=== PATIENT | female | born 1965 | race Caucasian/White ===

== ENCOUNTER 2024-07-24 17:45 | Observation (INO) | payer OTHER, SELFPAY ==
[2024-07-24] VITALS (12 sets, daily range): BP systolic 124–150; BP diastolic 76–91; PULSE 74–92; RESP 12–29; TEMP 36.4–36.6; O2SAT 98–100
--- NOTE | ~2024-07-24 | CT_ITS ---
EXAMINATION: CTA brain carotid DATE: 07/24/2024 19:07 INDICATION: Left-sided weakness with unsteady gait TECHNIQUE: Computed tomographic angiography (CTA) of the head was performed without and with 100 mL O mnipaque-350 intravenous contrast. CTA of the neck was performed with intravenous contrast. The dose- length product was 1514.52 mGy-cm. Maximum intensity projection and volume rendered 3D-reconstruction s were created by the technologist on a separate workstation. COMPARISON: None. FINDINGS: HEAD CTA: No significant stenosis or aneurysmal dilatation is identified. [place] is int act. NECK CTA: No hemodynamically significant stenosis is identified bilaterally. Within the brain: No acute intracranial hemorrhage or suspicious mass effect. Mucoperiosteal thickening is identified left maxillary sinus. Right maxillary sinus and remaining paranasal sinuses are unremarkable. The mastoid air cells are well aerated There is 0% stenosis of the proximal right internal carotid artery relative to normal distal artery l umen diameter (NASCET criteria). There is 0% stenosis of the proximal left internal carotid artery re lative to normal distal artery lumen diameter. IMPRESSION: 1. 0% stenosis of the proximal right internal carotid artery relative to normal distal artery lumen d iameter (NASCET criteria). 2. 0% stenosis of the proximal left internal carotid artery relative to normal distal artery lumen di ameter. No acute intracranial hemorrhage or suspicious mass effect. Inflammatory sinus disease Reviewed, dictated and finalized at location A. GY PROFESSIONAL IMPRESSION: 1. 0% stenosis of the proximal right internal carotid artery relative to normal distal artery lumen diameter (NASCET criteria). 2. 0% stenosis of the proximal left internal carotid artery relative to normal distal artery lumen diameter. No acute intracranial hemorrhage or suspicious mass effect. Inflammatory sinus disease
--- NOTE | ~2024-07-24 | MR_ITS ---
EXAMINATION: MR brain/brain stem wo con DATE: 07/25/2024 13:42 INDICATION: Left hemiparesis TECHNIQUE: Magnetic resonance imaging (MRI) of the brain and brainstem was performed without intraven ous contrast. Sequences included sagittal and axial T1-weighted SE, axial diffusion-weighted FS SE, a xial 3D SWAN, axial T2-weighted FLAIR, and axial T2-weighted FSE. Postcontrast axial and coronal T1-w eighted SE was obtained. Apparent diffusion coefficient (ADC) maps were created. COMPARISON: Head CT and CT angiogram dated 07/24/2024 FINDINGS: There are no areas of restricted diffusion to suggest acute infarction. No intracranial hemorrhage or abnormal intracranial mass lesion. There are a few scattered areas of nonspecific increased T2-weigh lina signal intensity in the cerebral white matter, predominantly involving the deep and periventricul ar white matter which is within normal limits for age and likely sequela of chronic small vessel isch emic disease. There are no intraparenchymal signal abnormalities seen on the other pulse sequences. T he ventricles are symmetric and normal in size. There are no abnormal extra-axial fluid collections. Flow voids are seen in the cerebral arteries on the T2-weighted sequences consistent with their expec lina patency. Left vertebral artery is dominant. Prominent mucosal thickening the left maxillary sinus . Mild mucosal thickening at the right maxillary and bilateral ethmoid sinuses. Visualized orbits and soft tissues are unremarkable. IMPRESSION: 1. Normal aging brain. No acute intracranial process. Reviewed, dictated and finalized at location B. RAFT ENGINE TECHNICIAN
--- NOTE | ~2024-07-24 | XR_ITS ---
CHEST RADIOGRAPH CLINICAL HISTORY: weakness . COMPARISON: 04/11/2016 TECHNIQUE: Single portable view of the chest. FINDINGS The cardiomediastinal silhouette is unremarkable. The lungs are clear. Prior fracture deformity within the right mid to lower lung field. IMPRESSION: No focal infiltrate or effusion. Reviewed, dictated and finalized at location A. ENT CENTERED CARE SPECIALIST
--- NOTE | 2024-07-24 17:45 | ECG_ITS ---
Test Date: 2024-07-24 17:52:23 Measurements Intervals [place] Rate: 91 P: 63 NV: 186 QRS: 5 QRSD: 98 T: 64 QT: 365 QTc: 451 Interpretive Statements SINUS RHYTHM LEFT ATRIAL ENLARGEMENT [-0.15mV P-WAVE IN V1/V2] No previous ECG available for comparison Electronically Signed On 07-25-2024 18:25:49 TOOL MAINTENANCE TECHNICIAN by Irasema Mott M.D.
[2024-07-24 18:13] LABS: Basophils Percent Auto 0.4 % (0.2-1.2); Eosinophils Absolute Auto 0.1 K/mm3 (0-0.3); Eosinophils Percent Auto 1.5 % (0-4.4); Hemoglobin 12.3 g/dL (12.0-15.0); Immature Granulocyte Absolute 0.02 K/mm3 (0.00-0.031); Immature Granulocyte Percent A 0.3 % (0-0.5); Lymphocytes Absolute Auto 2.46 K/mm3 (0.9-3.2); Lymphocytes Percent Auto 32.8 % (18.3-44.2); Mean Corpuscular HGB Conc 33.2 g/dl (32-36); Mean Corpuscular Hemoglobin 29.1 pg (26-34); Mean Corpuscular Volume 87.7 fl (80-100); Monocytes Absolute Auto 0.5 K/mm3 (0.1-0.6); Monocytes Percent Auto 7.1 % (2.6-8.5); Neutrophils Absolute Auto 4.4 K/mm3 (1.3-6.7); Neutrophils Percent Auto 57.9 % (45.5-73.1); Platelet Count Result 316 k/mm3 (150-375); Red Blood Count 4.22 M/mm3 (4.2-5.4); Red Cell Distribution Width 14.1 % (11.5-14.5); White Blood Count 7.5 K/mm3 (4.5-10.0)
[2024-07-24 18:22] LABS: Alanine Aminotransferase 11 U/L (6-35); Alkaline Phosphatase 91 U/L (38-126); Anion Gap 1 mmol/L (4-12); Aspartate Amino Transferase 12 U/L (14-36); Bilirubin,Total 0.3 mg/dL (0.2-1.3); Blood Urea Nitrogen 7 mg/dL (7-17); Calcium 8.9 mg/dL (8.4-10.2); Carbon Dioxide 29 mmol/L (22-30); Chloride 108 mmol/L (98-107); Estimated Glomerular Filt Rate > 60; Glucose 85 mg/dL (65-110); Potassium 3.5 mmol/L (3.4-5.0); Sodium 138 mmol/L (137-145)
[2024-07-24 18:23] LABS: INR 0.9; Partial Thromboplastin Time 25.1 Seconds (22.3-36.8); Prothrombin Time 12.2 Seconds (11.1-14.7)
[2024-07-24 18:51] LABS: Ethanol < 10 mg/dL (<10)
[2024-07-24 19:02] LABS: Ammonia < 9 umol/L (9-30)
--- NOTE | 2024-07-24 19:02 | ED.AMS ---
HPI - Altered Mental Status General Chief Complaint: Altered Mental Status Stated Complaint: lethargy, frequent urination, ams Time Seen by Provider: 07/24/24 17:53 Source: patient, family (son), EMS and RN notes reviewed Mode of arrival: EMS History of Present Illness HPI narrative: This is a 59 year old female with history of bipolar, tardive dyskinesia who presents for evaluation of frequent falls and altered mental status. PAtient states 1 month ago her trazodone and austedo were increased . She has been having frequent falls and dizziness since her medication adjustment. She also reports left side weakness for 2 weeks. She reports mild frontal headache. Her son states that she has been having worsening memory issues for 2 weeks and she has been diagnosed early onset dementia by PCP. She has not sought medical treatment in the past 2 weeks. They called 911 today because patient came out of the bathroom with her shirt off and did not seem to be aware of what was going on. HEr son states she thought was 1958. PAtient currently is oriented to person, age, place and year. Related Data Allergies Allergy/AdvReac Type Severity Reaction Status Date / Time Penicillins Allergy Unknown Rash Verified 07/24/24 17:54 Review of Systems Constitutional: Constitutional: Reports fatigue and Reports weakness ENT: Reports dizziness and Reports nasal congestion Cardiovascular: Cardiovascular: Denies chest pain Respiratory: Respiratory: Denies cough and Denies dyspnea Gastrointestinal: Gastrointestinal: Denies abdominal pain Neurologic: Reports headache(s), Reports focal weakness and Reports weakness PMFSH Past Medical History Medical History (Updated 07/24/24 @ 20:11 by Anat Wong MD) Tardive dyskinesia Bipolar disorder Family History Family History (Updated 03/23/14 @ 07:13 by DOCTOR UNKNOWN) Father Depression Hypertension Asthma Family history of alcoholism Mother Family history of malignant neoplasm Other Family history of mental disorder Social History Social History Smoking status: Former smoker Second hand tobacco smoke exposure: No Smoking end date: 07/27/04 Alcohol intake: current Exam Const: General: no acute distress and alert Nutritional Appearance: well nourished Orientation/consciousness: patient oriented x3 HENMT: Head: normal to inspection Face and sinus: normal facial exam Mouth: Yes Normal oral and palatal mucosa present, Yes lip normal and Yes moist mucous membranes Throat: posterior oropharynx normal and uvula midline Other: endentulous Eyes: Conjunctivae: conjunctivae normal Pupils: Equal, round and reactive pupils present EOM: EOMs intact bilaterally Neck: Neck: normal visual inspection Resp: Effort & Inspection: normal respiratory effort Auscultation: clear to auscultation bilaterally Cardio: Rate: regular rate Rhythm: regular rhythm Heart sounds: no murmurs GI: GI Palp: Yes Soft to palpation, No Tenderness to palpation present (GI), No Guarding due to palpation present (GI) and No Rigid due to palpation Auscultation: normal bowel sounds Skin: General skin exam: normal color Neuro: General: patient oriented x3, moves all extremities and CN's II-XI intact bilaterally Cranial nerves: Yes Nystagmus not present Speech: normal speech Motor exam (neuro): Abnormal motor strength present (decrease strength left leg) and Pronator motor function present pronator drift of left upper extremity Sensory Exam: Sensory deficit (Neuro) Course Reevaluation(s) Reevaluation #1: I Discussed with patient will admit for MRI to rule out CVA given her left side weakness. Date: 07/17/24 Time: 20:10 Consultations Consultation #1: I Discussed case with Asiya. PAtient will need MRI For rule out stroke that may have occurred within past 2 weeks. Not candidate for TNK or intervention as symptoms started over 72 hours ago. Ok with placing order for neuro consult. Date: 07/24/24 Time: 20:09 Vital Signs Vital signs: Vital Signs Temperature 97.6 F 07/24/24 17:48 Pulse Rate 92 07/24/24 17:48 Respiratory Rate 23 H 07/24/24 17:48 Blood Pressure 150/91 H 07/24/24 17:48 Pulse Oximetry 99 07/24/24 17:48 Oxygen Delivery Room Air 07/24/24 17:48 Temperature 97.6 F 07/24/24 19:13 Pulse Rate 86 07/24/24 19:13 Respiratory Rate 12 07/24/24 19:13 Blood Pressure 124/80 07/24/24 19:13 Pulse Oximetry 100 07/24/24 19:13 Oxygen Delivery Room Air 07/24/24 17:54 MDM - Altered Mental Status Differential Diagnosis Differential diagnosis: Likely alcoholic intoxication, altered mental status, delirium, dementia, hypoglycemia, hyponatremia, subarachnoid hemorrhage and other (CVA) Medical Records Attestation: I reviewed the patient's medical records. Lab Data Attestation: I reviewed the patient's lab results. 07/24/24 18:05 07/24/24 18:05 Labs: Lab Results 07/24/24 07/24/24 07/24/24 Range/Units 18:05 18:22 18:47 WBC 7.5 (4.5-10.0) K/mm3 RBC 4.22 (4.2-5.4) M/mm3 Hgb 12.3 (12.0-15.0) g/dL Hct 37.0 (37.0-47.0) % MCV 87.7 (80-100) fl MCH 29.1 (26-34) pg MCHC 33.2 (32-36) g/dl RDW 14.1 (11.5-14.5) % Plt Count 316 (150-375) k/mm3 MPV 9.0 (7.4-10.4) fl Immature Gran % (Auto) 0.3 (0-0.5) % Neut % (Auto) 57.9 (45.5-73.1) % Lymph % (Auto) 32.8 (18.3-44.2) % [place] % (Auto) 7.1 (2.6-8.5) % Eos % (Auto) 1.5 (0-4.4) % Baso % (Auto) 0.4 (0.2-1.2) % Lymph # (Auto) 2.46 (0.9-3.2) K/mm3 [place] # (Auto) 0.5 (0.1-0.6) K/mm3 Eos # (Auto) 0.1 (0-0.3) K/mm3 Baso # (Auto) 0.0 (0.0-0.1) K/mm3 Abs Immat Gran (auto) 0.02 (0.00-0.031) K/mm3 Absolute Neuts (auto) 4.4 (1.3-6.7) K/mm3 Absolute Nucleated RBC 0.000 (0.0-0.012) K/mm3 Nucleated RBC % 0.0 (0.0-0.2) % PT 12.2 (11.1-14.7) Seconds INR 0.9 APTT 25.1 (22.3-36.8) Seconds Sodium 138 (137-145) mmol/L Potassium 3.5 (3.4-5.0) mmol/L Chloride 108 H (98-107) mmol/L Carbon Dioxide 29 (22-30) mmol/L Anion Gap 1 L (4-12) mmol/L BUN 7 (7-17) mg/dL Creatinine 0.80 (0.7-1.0) mg/dL Estim Creat Clear Calc Not Reportable Estimated GFR > 60 (59 - ) Glucose 85 (65-110) mg/dL Calcium 8.9 (8.4-10.2) mg/dL Total Bilirubin 0.3 (0.2-1.3) mg/dL AST 12 L (14-36) U/L ALT 11 (6-35) U/L Alkaline Phosphatase 91 (38-126) U/L Ammonia < 9 L (9-30) umol/L Total Protein 7.0 (6.3-8.2) g/dL Albumin 4.0 (3.5-5.1) g/dL Urine Color (Yellow) Urine Appearance (Clear) Urine pH (5.0-9.0) Ur Specific [place] (1.001-1.035) Urine Protein (Negative) mg/dL Urine Glucose (UA) (Negative) mg/dL Urine Ketones (Negative) mg/dL Ur Blood (Man) (Negative) Urine Nitrate (Negative) Urine Bilirubin (Negative) Urine Urobilinogen (<2.0) mg/dL Leukocyte Esterase Rfl (Negative) BREANA/UL Urine RBC (0-2) /hpf Urine WBC (0-3) /hpf Ur Squamous Epith Cells (Few) /hpf Urine Bacteria /hpf Urine Casts Urine Opiates Screen (Negative) Urine Methadone Screen (Negative) Ur Barbiturates Screen (Negative) Ur Phencyclidine Scrn (Negative) Ur Amphetamine Screen (Negative) U Benzodiazepines Scrn (Negative) Urine Cocaine Screen (Negative) U Cannabinoids Screen (Negative) Ethyl Alcohol < 10 (<10) mg/dL Influenza A (RT-PCR) Negative (Negative) Influenza B (RT-PCR) Negative (Negative) SARS-CoV-2 RNA (RT-PCR) Negative (Negative) 07/24/24 Range/Units 19:11 WBC (4.5-10.0) K/mm3 RBC (4.2-5.4) M/mm3 Hgb (12.0-15.0) g/dL Hct (37.0-47.0) % MCV (80-100) fl MCH (26-34) pg MCHC (32-36) g/dl RDW (11.5-14.5) % Plt Count (150-375) k/mm3 MPV (7.4-10.4) fl Immature Gran % (Auto) (0-0.5) % Neut % (Auto) (45.5-73.1) % Lymph % (Auto) (18.3-44.2) % [place] % (Auto) (2.6-8.5) % Eos % (Auto) (0-4.4) % Baso % (Auto) (0.2-1.2) % Lymph # (Auto) (0.9-3.2) K/mm3 [place] # (Auto) (0.1-0.6) K/mm3 Eos # (Auto) (0-0.3) K/mm3 Baso # (Auto) (0.0-0.1) K/mm3 Abs Immat Gran (auto) (0.00-0.031) K/mm3 Absolute Neuts (auto) (1.3-6.7) K/mm3 Absolute Nucleated RBC (0.0-0.012) K/mm3 Nucleated RBC % (0.0-0.2) % PT (11.1-14.7) Seconds INR APTT (22.3-36.8) Seconds Sodium (137-145) mmol/L Potassium (3.4-5.0) mmol/L Chloride (98-107) mmol/L Carbon Dioxide (22-30) mmol/L Anion Gap (4-12) mmol/L BUN (7-17) mg/dL Creatinine (0.7-1.0) mg/dL Estim Creat Clear Calc Estimated GFR (59 - ) Glucose (65-110) mg/dL Calcium (8.4-10.2) mg/dL Total Bilirubin (0.2-1.3) mg/dL AST (14-36) U/L ALT (6-35) U/L Alkaline Phosphatase (38-126) U/L Ammonia (9-30) umol/L Total Protein (6.3-8.2) g/dL Albumin (3.5-5.1) g/dL Urine Color Yellow (Yellow) Urine Appearance Clear (Clear) Urine pH 6.5 (5.0-9.0) Ur Specific [place] 1.007 (1.001-1.035) Urine Protein Negative (Negative) mg/dL Urine Glucose (UA) Negative (Negative) mg/dL Urine Ketones Negative (Negative) mg/dL Ur Blood (Man) Negative (Negative) Urine Nitrate Negative (Negative) Urine Bilirubin Negative (Negative) Urine Urobilinogen 0.2 (<2.0) mg/dL Leukocyte Esterase Rfl 3+ H (Negative) BREANA/UL Urine RBC 0-2 (0-2) /hpf Urine WBC 6-10 H (0-3) /hpf Ur Squamous Epith Cells Occasional (Few) /hpf Urine Bacteria None seen /hpf Urine Casts 0-2 Urine Opiates Screen Negative (Negative) Urine Methadone Screen Negative (Negative) Ur Barbiturates Screen Negative (Negative) Ur Phencyclidine Scrn Negative (Negative) Ur Amphetamine Screen Negative (Negative) U Benzodiazepines Scrn Negative (Negative) Urine Cocaine Screen Negative (Negative) U Cannabinoids Screen Positive A (Negative) Ethyl Alcohol (<10) mg/dL Influenza A (RT-PCR) (Negative) Influenza B (RT-PCR) (Negative) SARS-CoV-2 RNA (RT-PCR) (Negative) Imaging Data Radiologist's impression: ITS Impressions Chest X-Ray 07/24/24 19:31 IMPRESSION: No focal infiltrate or effusion. Head/Neck CTA 07/24/24 19:34 IMPRESSION: 1. 0% stenosis of the proximal right internal carotid artery relative to normal distal artery lumen diameter (NASCET criteria). 2. 0% stenosis of the proximal left internal carotid artery relative to normal distal artery lumen diameter. No acute intracranial hemorrhage or suspicious mass effect. Inflammatory sinus disease ECG Data EKG #1: Attestation: I personally reviewed and interpreted this ECG as follows: ECG completion date: 07/24/24 ECG completion time: 17:52 EKG Interpretation: normal rate, sinus rhythm and no ST changes Discharge Plan Discharge Clinical Impression: Left-sided muscle weakness Patient Disposition: Still a Patient Condition: Stable Patient Language: [place] Follow-up/Referrals: UNKNOWN,DOCTOR [Primary Care Provider] - Quality Stroke Scale Stroke Scale 1: Stroke scale date:: 07/24/24 Stroke scale time:: 19:28 1a Level of consciousness: alert-0 1b Level of consciousness questions: answers both correctly-0 1c Level of consciousness commands: obeys both correctly-0 2 Best gaze: normal-0 3 Visual: no visual loss-0 4 Facial palsy: normal-0 5a Motor: left arm: drift-1 5b Motor: right arm: no drift-0 6a Motor: left leg: drift-1 6b Motor: right leg: no drift-0 7 Limb ataxia: absent-0 8 Sensory: pinprick less sharp-1 9 Best language: no aphasia-0 10 Dysarthria: normal-0 11 Extinction and inattention: no abnormality-0 Level:: 3
[2024-07-24 19:06] LABS: Influenza A QL RT-PCR Negative (Negative); Influenza B QL RT-PCR Negative (Negative); SARS-CoV-2 RNA PCR Negative (Negative)
[2024-07-24 19:34] LABS: Amphetamine Screen Urine Negative (Negative); Barbiturate Screen Urine Negative (Negative); Benzodiazepines Screen Urine Negative (Negative); Cannabinoid Screen Urine Positive (Negative); Cocaine Screen Urine Negative (Negative); Methadone Screen Urine Negative (Negative); Opiate Screen Urine Negative (Negative); Phencyclidine Screen Urine Negative (Negative)
[2024-07-24 19:48] LABS: Add Urine Microscopic? YES; Appearance Urine Clear (Clear); Bacteria Urine None Seen /hpf; Bilirubin Urine Negative (Negative); Blood Urine Negative (Negative); Color Urine Yellow (Yellow); Glucose Urine UA Negative (Negative); Ketones Urine Negative (Negative); Leukocyte Esterase Ur 3+ LEU/UL (Negative); Nitrate Urine Negative (Negative); Non Pathogenic Casts 0-2; Protein Urine Negative (Negative); RBC Urine 0-2 /hpf (0-2); Specific Grav Ur 1.007 (1.001-1.035); Squamous Epithelial Cell Urine Occasional /hpf (Few); Urobilinogen Urine 0.2 mg/dL (<2.0); pH Urine 6.5 (5.0-9.0)
--- NOTE | 2024-07-24 20:10 | P.HP_ITS ---
H&P: HPI History of Present Illness Date/Time: 07/24/24 20:10 Chief Complaint: Multiple complaints. Narrative: This is a 59-year-old female with bipolar disorder, depression, and tardive dyskinesia presented to the emergency department via EMS from home with multiple complaints. The patient provides the following history and her family provides additional information with the patient's permission. About a month ago her trazodone and [place] doses were increased and she reports increased falls and dizziness since those changes were made. Over the last couple of weeks she has noticed some weakness on her left side and family members have noticed that she seems to be a bit confused. It is my understanding that she was diagnosed with possible early-onset dementia by her doctor though that has yet to be confirmed. The patient has not been evaluated for the symptoms as of yet however her family members insisted that she come in today for evaluation after she came out of the bathroom with her shirt off and did not seem to be aware what was going on. At the time my evaluation she is alert and oriented times 3 and remains a bit confused as to what occurred earlier on today. She denies vertigo, visual c hanges, facial droop, difficulties speaking and swallowing, and paresthesias. She also denies chest pain, palpitations, sensations of racing heart, syncope, near syncope, and head trauma. No recent cold or flu symptoms but she does have chronic sinus issues. In the ED: She was afebrile on arrival with stable vital signs. CBC and CMP were pretty unremarkable. Urinalysis was positive for 3+ leukocyte esterase and 6 to 10 wbc's per high-power field. Urine drug screen was positive for cannabinoids. Ethyl alcohol level was less than 10. She was negative for influenza and COVID. Chest x-ray showed no focal infiltrate or effusion. CTA of the head and neck showed 0% stenosis of the internal carotid arteries, no intracranial hemorrhage or suspicious mass effect, and inflammatory sinus disease. EKG showed sinus rhythm without acute ST segment deviations. She is being admitted in this setting for further workup. Review of Systems Review of Systems: 12 systems were reviewed and are negativ e except for as per HPI. [facility] Past Medical History Medical History Depression Tardive dyskinesia Bipolar disorder Surgical History Surgical History History of section History of hysterectomy History of tonsillectomy Family History Family History Father Depression Hypertension Asthma Family history of alcoholism Mother Family history of malignant neoplasm Other Family history of mental disorder Social History Social History (Updated 07/25/24 @ 03:24 by Asiya Dash PA-C) Social History: Surrogate medical decision maker: Son Code status: Full code. Smoking status: Former smoker Second hand tobacco smoke exposure: No Smoking end date: 07/27/04 Alcohol intake: current Meds Home Medications and Allergies Allergies Allergy/AdvReac Type Severity Reaction Status Date / Time Penicillins Allergy Unknown Rash Verified 07/24/24 17:54 Vital Signs Vital Signs - 24 hr 07/24/24 17:48 07/24/24 17:54 07/24/24 19:12 Temperature 97.6 F Pulse Rate 92 87 Respiratory Rate 23 H Blood Pressure 150/91 H Pulse Oximetry 99 Oxygen Delivery Room Air Room Air 07/24/24 19:13 Temperature 97.6 F Pulse Rate 86 Respiratory Rate 12 Blood Pressure 124/80 Pulse Oximetry 100 Oxygen Delivery Exam Narrative: General: Chronically ill-appearing female supine in bed in no acute distress. She looks older than her stated age. Weight: 69.2 kg. HEENT: Normocephalic, atraumatic. PERRL, EOMI. Sclera anicteric. Tacky mucous membranes. Neck: Supple. No carotid bruits. Respiratory: Lungs are clear to auscultation bilaterally. Cardiovascular: Regular rate and rhythm with S1-S2. Gastrointestinal: Abdomen is soft, nontender, and nondistended with positive bowel sounds. Skin: Warm and dry. No rash or lesions on limited exam. Extremities: No cyanosis, clubbing, or edema. Radial and pedal pulses intact. Neurological: Alert and oriented x3. Cranial nerves 2-12 are grossly intact. Speech is clear. No facial asymmetry. Mild pronator drift of the left upper extremity. Strength appears to be a bit diminished in the left leg. Normal [id number]. Psychiatric: Cooperative with appropriate mood and affect. H&P: Results Labs Labs: Short CBC 07/24/24 Range/Units 18:05 WBC 7.5 (4.5-10.0) K/mm3 Hgb 12.3 (12.0-15.0) g/dL Hct 37.0 (37.0-47.0) % Plt Count 316 (150-375) k/mm3 BMP 07/24/24 18:05 Sodium 138 Potassium 3.5 Chloride 108 H Carbon Dioxide 29 BUN 7 Creatinine 0.80 Glucose 85 Calcium 8.9 Liver Function 07/24/24 Range/Units 18:05 Total Bilirubin 0.3 (0.2-1.3) mg/dL AST 12 L (14-36) U/L ALT 11 (6-35) U/L Alkaline Phosphatase 91 (38-126) U/L Albumin 4.0 (3.5-5.1) g/dL Urine 07/24/24 Range/Units 19:11 Urine Color Yellow (Yellow) Urine Appearance Clear (Clear) Urine pH 6.5 (5.0-9.0) Ur Specific [place] 1.007 (1.001-1.035) Urine Protein Negative (Negative) mg/dL Urine Glucose (UA) Negative (Negative) mg/dL Impressions Chest X-Ray 07/24/24 19:31 IMPRESSION: 1. No focal infiltrate or effusion. Head/Neck CTA 07/24/24 19:34 IMPRESSION: 1. 0% stenosis of the proximal right internal carotid artery relative to normal distal artery lumen diameter (NASCET criteria). 2. 0% stenosis of the proximal left internal carotid artery relative to normal distal artery lumen diameter. 3. No acute intracranial hemorrhage or suspicious mass effect. 4. Inflammatory sinus disease. Assessment and Plan Assessment and plan (1) Left-sided muscle weakness: Code(s): M62.81 - Muscle weakness (generalized) Status: Acute (2) Frequent falls: Code(s): R29.6 - Repeated falls Status: Acute (3) Abnormal urinalysis: Code(s): R82.90 - Unspecified abnormal findings in urine Status: Acute (4) Bipolar disorder: Code(s): F31.9 - Bipolar disorder, unspecified Status: Acute (5) Tardive dyskinesia: Code(s): G24.01 - Drug induced subacute dyskinesia Status: Acute Plan The patient presented to the emergency department with multiple complaints including falls, confusion, and left-sided weakness as detailed in HPI. Labs, imaging, EKG, and all reports were personally reviewed. Vital signs have been stable and her labs were pretty unremarkable. Brain CT was without acute findings however she does have some deficits on physical exam concerning for possible stroke. MRI has been ordered for a.m.. Neurology was consulted by the ED physician and their input is appreciated. PT/OT consulted. Initiate fall precautions. Urinalysis was positive for leukocyte esterase but only 6 to 10 WBC were seen per high-power field and no bacteria were seen. As such will hold on antibiotics, pending urine culture. Her home medications will be reviewed and resumed as appropriate. Findings and treatment plan were discussed with the patient. Questions were solicited and answered to satisfaction. The patient's medical management will be taken over by the hospitalist team in a.m. Quality VTE Prophylaxis VTE prophylaxis: mechanical ordered If No VTE Prophylaxis Answer both mechanical and pharmacologic: Reason no pharmacologic proph: medical contraindication (fall risk) The patient has been admitted under observation status. Hospitalist MIPS Advance Care Plan I have confirmed that the patient's Advanced Care Plan is present, code status is documented, or surrogate decision maker is listed in patient medical record.: Yes Medication Reconciliation I have utilized all available resources to obtain, update and review the patients current medications (includes all prescriptions, OTC, herbals, cannabis, and nutritional supplements).: Yes
[2024-07-25] VITALS (68 sets, daily range): BP systolic 100–138; BP diastolic 51–92; PULSE 73–94; RESP 12–32; TEMP 35.8–37.3; O2SAT 95–100; BMI 25.7
[2024-07-25 05:50] LABS: Cholesterol 156 mg/dL (0-200); HDL Direct 70 mg/dL; Triglycerides 100 mg/dL (<150)
[2024-07-25 06:01] LABS: LDL Cholesterol Direct 51 mg/dL
[2024-07-25] MEDS: ASPIRIN 81 MG CHEWABLE TABLET PO (08:10)
[2024-07-25 08:59] LABS: Basophils Absolute Auto 0.1 K/mm3 (0.0-0.1); Basophils Percent Auto 0.9 % (0.2-1.2); Eosinophils Absolute Auto 0.1 K/mm3 (0-0.3); Eosinophils Percent Auto 1.7 % (0-4.4); Hematocrit 38.2 % (37.0-47.0); Hemoglobin 12.4 g/dL (12.0-15.0); Immature Granulocyte Absolute 0.01 K/mm3 (0.00-0.031); Immature Granulocyte Percent A 0.1 % (0-0.5); Lymphocytes Percent Auto 35.9 % (18.3-44.2); Mean Corpuscular HGB Conc 32.5 g/dl (32-36); Mean Corpuscular Hemoglobin 29.2 pg (26-34); Mean Corpuscular Volume 89.9 fl (80-100); Monocytes Absolute Auto 0.4 K/mm3 (0.1-0.6); Monocytes Percent Auto 5.3 % (2.6-8.5); Neutrophils Absolute Auto 3.9 K/mm3 (1.3-6.7); Neutrophils Percent Auto 56.1 % (45.5-73.1); Platelet Count Result 302 k/mm3 (150-375); Red Blood Count 4.25 M/mm3 (4.2-5.4); Red Cell Distribution Width 14.3 % (11.5-14.5)
[2024-07-25 09:46] LABS: Alanine Aminotransferase 11 U/L (6-35); Albumin Level 3.4 g/dL (3.5-5.1); Alkaline Phosphatase 81 U/L (38-126); Anion Gap 0 mmol/L (4-12); Aspartate Amino Transferase 13 U/L (14-36); Bilirubin,Total 0.2 mg/dL (0.2-1.3); Blood Urea Nitrogen 12 mg/dL (7-17); Calcium 8.9 mg/dL (8.4-10.2); Carbon Dioxide 28 mmol/L (22-30); Chloride 110 mmol/L (98-107); Estimated CRCL calculation 56 ml/min; Estimated Glomerular Filt Rate > 60; Glucose 81 mg/dL (65-110); Potassium 3.8 mmol/L (3.4-5.0); Sodium 138 mmol/L (137-145)
[2024-07-25] MEDS: OLANZapine 5 MG TABLET 15 MG PO (09:46)
[2024-07-25] MEDS: lamoTRIgine 100 MG TABLET 200 MG PO (09:46)
[2024-07-25] MEDS: PROPRANOLOL HCL 20 MG TABLET PO ×2 (09:46→22:13)
[2024-07-25] MEDS: hydrOXYzine HCL 25 MG TABLET 50 MG PO ×3 (09:47→17:26)
--- NOTE | 2024-07-25 14:15 | P.CONNEU_ITS ---
Assessment and Plan Assessment and plan (1) Tardive dyskinesia: Code(s): G24.01 - Drug induced subacute dyskinesia Status: Chronic (2) Bipolar disorder: Code(s): F31.9 - Bipolar disorder, unspecified Status: Chronic (3) Frequent falls: Code(s): R29.6 - Repeated falls Status: Acute Plan 1. Bipolar disorder for which she is under the care of psychiatrist who has been managing her medication up until now and I will be reluctant to alter her medication during this brief hospitalization here she was mainly admitted to rule out the possibly stroke on MRI of the brain is negative she can be discharged with instruction to return to the follow-up with her basic psychiatric physician. Does have mild signs of tardive dyskinesia. Her medication have been reviewed obviously if she needs any alteration in this medication particularly the Austedo, olanzapine and trazodone the her own psychiatrist has to be involved in her for her confidence awaken and tell her that his MRI of the brain is normal if any further questions arise please do not hesitate to contact,falls could be related ti dyskinesia Consult date: 07/26/24 HPI: Nory Cuevas is a 59 year old female Admitted to the hospital through the emergency room for the complaints of change in the mental status along with lethargy and frequent urination in addition to the ongoing history of bipolar disorder, tardive dyskinesia, and with information that about 1 month ago her trazodone and Austedo were increased by the physician and since that time she has been experiencing frequent falls with dizziness he also complaining of mild frontal headache and has been experiencing increasing memory issues though she has been recently diagnosed by her family physician to have an early onset dementia. On initial visit she was complaining of mild frontal headache, memory difficulties, and also she stated that she call the 911 as she came out of the bathroom she had her shirt of and did not seem to be aware of what was going on. She is allergic to penicillin. And as mentioned before she has ongoing history of 1. Bipolar disorder 2. Tardive dyskinesia 3. Being a former smoker and 4. Currently alcohol intake on initial exam in the emergency room she was found to have no focal neurological deficit, sitting a concern about the stroke she was admitted to have the MRI done. Her initial vital signs were normal except respiration rate 23 and blood pressure 150/91. CBC was normal, BMP was normal, and mast scan was normal, in addition screening for influenza a B and SARs COVID were also negative. Her UA is screen was negative for the drugs except positive for the cannabinoids. And she was noted to have 3+ leukocyte esterase. Her initial chest x-ray was normal and head and neck CTA was also normal EEG was normal without any atrial fibrillation, her medications included amitriptyline 100mg at night, Austedo 24mg twice a day, hydroxyzine 50mg 3 times a day, lamotrigine 200mg every morning, olanzapine 15mg daily, prazosin 1mg nightly, propranolol 20mg q.12 hours, And trazodone 100mg at HS. Since admission she has had the MRI of the brain which is normal and head and neck CTA is also negative. Review of Systems 2 Review of Systems: All systems reviewed & are unremarkable except as noted in HPI and below PMFSH Past Medical History Medical History Depression Tardive dyskinesia Bipolar disorder Surgical History Surgical History History of section History of hysterectomy History of tonsillectomy Family History Family History Father Depression Hypertension Asthma Family history of alcoholism Mother Family history of malignant neoplasm Other Family history of mental disorder Social History Social History Social History: Surrogate medical decision maker: Son Code status: Full code. Smoking status: Former smoker Tobacco type: cigarettes Second hand tobacco smoke exposure: No Smoking end date: 08/27/23 Alcohol intake: current Substance use: current Substance use type: marijuana Do You Feel Safe in your Home?: Yes Lack of Transportation: No Lack of Food: Never True Current Housing: I Have Housing Concerned About Future Housing: No Difficulty Paying Gas/Electric Bills: No Difficulty Paying for Meds: No Currently Unemployed: No Education: High School Diploma/GED Difficulty w/ Childcare or Family Care: No Spiritual care concerns: No Meds Home Medications and Allergies Home Medications ?Medication ?Instructions ?Recorded ?Confirmed ?Type amitriptyline 100 mg tablet 100 mg PO HS 07/25/24 07/25/24 History deutetrabenazine 12 mg tablet 24 mg PO BID 07/25/24 07/25/24 History (Austedo) hydroxyzine HCl 50 mg tablet 50 mg PO TID 07/25/24 07/25/24 History lamotrigine 100 mg tablet 200 mg PO .every morning 07/25/24 07/25/24 History olanzapine 15 mg tablet 15 mg PO DAILY 07/25/24 07/25/24 History prazosin 1 mg capsule 1 mg PO .nightly 07/25/24 07/25/24 History propranolol 20 mg tablet 20 mg PO Q12H 07/25/24 07/25/24 History trazodone 100 mg tablet 100 mg PO .every night 07/25/24 07/25/24 History Allergies Allergy/AdvReac Type Severity Reaction Status Date / Time Penicillins Allergy Unknown Rash Verified 07/24/24 17:54 Vital Signs Vital Signs - 24 hr 07/24/24 17:48 07/24/24 17:54 07/24/24 19:12 Temperature 36.4 C Pulse Rate 92 87 Respiratory Rate 23 H Blood Pressure 150/91 H Pulse Oximetry 99 Oxygen Delivery Room Air Room Air 07/24/24 19:13 07/24/24 21:20 07/24/24 22:31 Temperature 36.4 C 36.6 C Pulse Rate 86 74 74 Respiratory Rate 12 16 22 H Blood Pressure 124/80 137/84 140/81 Pulse Oximetry 100 98 99 Oxygen Delivery 07/24/24 22:45 07/24/24 23:00 07/24/24 23:15 Temperature Pulse Rate 83 81 81 Respiratory Rate 21 H 28 H 29 H Blood Pressure Pulse Oximetry 100 99 100 Oxygen Delivery 07/24/24 23:16 07/24/24 23:24 07/24/24 23:31 Temperature 36.6 C Pulse Rate 81 79 82 Respiratory Rate 27 H 20 24 H Blood Pressure 132/76 132/76 Pulse Oximetry 100 98 Oxygen Delivery 07/24/24 23:45 07/25/24 00:00 07/25/24 00:01 Temperature Pulse Rate 82 80 81 Respiratory Rate 27 H 18 20 Blood Pressure 117/58 L Pulse Oximetry Oxygen Delivery 07/25/24 00:15 07/25/24 00:30 07/25/24 00:45 Temperature Pulse Rate 81 83 82 Respiratory Rate 18 18 19 Blood Pressure 100/53 L Pulse Oximetry Oxygen Delivery 07/25/24 00:46 07/25/24 01:00 07/25/24 01:08 Temperature 36.6 C Pulse Rate 83 82 85 Respiratory Rate 19 17 20 Blood Pressure 100/53 L Pulse Oximetry 97 Oxygen Delivery 07/25/24 01:15 07/25/24 01:30 07/25/24 01:31 Temperature Pulse Rate 85 81 79 Respiratory Rate 19 18 19 Blood Pressure 108/51 L Pulse Oximetry 96 96 96 Oxygen Delivery 07/25/24 01:45 07/25/24 02:00 07/25/24 02:15 Temperature Pulse Rate 81 76 78 Respiratory Rate 24 H 15 19 Blood Pressure 107/52 L Pulse Oximetry 97 98 96 Oxygen Delivery 07/25/24 02:16 07/25/24 02:30 07/25/24 02:45 Temperature Pulse Rate 78 76 74 Respiratory Rate 19 18 17 Blood Pressure Pulse Oximetry 97 97 97 Oxygen Delivery 07/25/24 02:59 07/25/24 03:00 07/25/24 03:01 Temperature 36.6 C Pulse Rate 75 74 75 Respiratory Rate 19 17 17 Blood Pressure 107/52 L 105/63 Pulse Oximetry 96 97 96 Oxygen Delivery 07/25/24 03:15 07/25/24 03:30 07/25/24 03:45 Temperature Pulse Rate 78 76 76 Respiratory Rate 13 19 15 Blood Pressure 127/75 Pulse Oximetry 98 98 98 Oxygen Delivery 07/25/24 03:46 07/25/24 04:00 07/25/24 04:15 Temperature Pulse Rate 76 78 81 Respiratory Rate 19 19 18 Blood Pressure Pulse Oximetry 98 98 95 Oxygen Delivery 07/25/24 04:30 07/25/24 04:31 07/25/24 04:45 Temperature Pulse Rate 81 79 77 Respiratory Rate 16 17 17 Blood Pressure 117/69 Pulse Oximetry 96 96 96 Oxygen Delivery 07/25/24 05:00 07/25/24 05:01 07/25/24 05:02 Temperature 36.4 C L Pulse Rate 86 85 85 Respiratory Rate 14 12 22 H Blood Pressure 130/70 130/70 Pulse Oximetry 98 98 98 Oxygen Delivery 07/25/24 05:15 07/25/24 05:16 07/25/24 05:30 Temperature Pulse Rate 79 82 78 Respiratory Rate 18 14 19 Blood Pressure 113/68 Pulse Oximetry 97 98 99 Oxygen Delivery 07/25/24 05:45 07/25/24 06:00 07/25/24 06:01 Temperature Pulse Rate 79 78 77 Respiratory Rate 12 17 22 H Blood Pressure 118/71 Pulse Oximetry 99 97 97 Oxygen Delivery 07/25/24 06:15 07/25/24 06:30 07/25/24 06:45 Temperature Pulse Rate 76 77 76 Respiratory Rate 15 25 H 23 H Blood Pressure 126/67 Pulse Oximetry 98 95 Oxygen Delivery 07/25/24 06:46 07/25/24 06:47 07/25/24 07:00 Temperature 36.6 C Pulse Rate 87 85 78 Respiratory Rate 17 16 15 Blood Pressure 126/67 Pulse Oximetry 97 99 97 Oxygen Delivery 07/25/24 07:15 07/25/24 07:30 07/25/24 07:31 Temperature Pulse Rate 77 75 79 Respiratory Rate 23 H 23 H 22 H Blood Pressure 127/75 Pulse Oximetry 96 97 97 Oxygen Delivery 07/25/24 07:45 07/25/24 08:00 07/25/24 08:15 Temperature Pulse Rate 79 83 86 Respiratory Rate 18 16 22 H Blood Pressure 138/79 Pulse Oximetry 97 98 97 Oxygen Delivery 07/25/24 08:16 07/25/24 08:30 07/25/24 08:45 Temperature Pulse Rate 87 86 92 Respiratory Rate 22 H 30 H 23 H Blood Pressure Pulse Oximetry 97 96 97 Oxygen Delivery 07/25/24 09:00 07/25/24 09:01 07/25/24 09:15 Temperature Pulse Rate 89 92 88 Respiratory Rate 32 H 22 H 20 Blood Pressure 130/64 Pulse Oximetry 97 98 97 Oxygen Delivery 07/25/24 09:30 07/25/24 09:45 07/25/24 09:46 Temperature Pulse Rate 94 86 90 Respiratory Rate 22 H 19 Blood Pressure Pulse Oximetry 97 100 Oxygen Delivery 07/25/24 09:46 07/25/24 10:00 07/25/24 10:15 Temperature Pulse Rate 87 85 80 Respiratory Rate 31 H 24 H 18 Blood Pressure 130/70 Pulse Oximetry 99 100 Oxygen Delivery 07/25/24 10:30 07/25/24 10:31 07/25/24 10:32 Temperature Pulse Rate 89 85 Respiratory Rate 18 22 H Blood Pressure 103/62 Pulse Oximetry Oxygen Delivery Room Air 07/25/24 10:45 07/25/24 12:00 07/25/24 13:38 Temperature 37.3 C Pulse Rate 81 73 78 Respiratory Rate 28 H 16 18 Blood Pressure 129/92 H 135/81 Pulse Oximetry 98 96 98 Oxygen Delivery Exam 2 Narrative: Examination today revealed her to be awake alert cooperative in no obvious acute distress, lying in bed in supine position with no obvious abnormal movements at this particular time, head normocephalic with no bruit, ear nose throat examination normal, neck supple with no cervical bruit no thyromegaly no lymphadenopathy, heart regular with no murmur, lungs clear to auscultation with no rhonchi or crepitation, abdomen soft nontender, neurologically she was awake alert she was able to tell me she follows with a physician in [place] and also his speech was not dysphasic not dysarthric not dysphonic, pupils are round regular feels the vision are full extraocular movements are full with no nystagmus facial sensation was intact face was symmetrical tongue was midline with no dyskinesia uvula was midline motor examination revealed her to have normal strength in upper and lower extremities proximally and distally with deep tendon reflexes 1+ and plantar responses downgoing there was no evidence of ataxia or dysmetria on [id number] and heel to knee to minor. Results Labs 07/26/24 07:27 07/26/24 07:27 Labs: Short CBC 07/24/24 07/25/24 Range/Units 18:05 08:55 WBC 7.5 7.0 (4.5-10.0) K/mm3 Hgb 12.3 12.4 (12.0-15.0) g/dL Hct 37.0 38.2 (37.0-47.0) % Plt Count 316 302 (150-375) k/mm3 BMP 07/24/24 07/25/24 18:05 05:18 Sodium 138 138 Potassium 3.5 3.8 Chloride 108 H 110 H Carbon Dioxide 29 28 BUN 7 12 D Creatinine 0.80 0.80 Glucose 85 81 Calcium 8.9 8.9 Liver Function 07/24/24 07/25/24 Range/Units 18:05 05:18 Total Bilirubin 0.3 0.2 (0.2-1.3) mg/dL AST 12 L 13 L (14-36) U/L ALT 11 11 (6-35) U/L Alkaline Phosphatase 91 81 (38-126) U/L Albumin 4.0 3.4 L (3.5-5.1) g/dL Urine 07/24/24 Range/Units 19:11 Urine Color Yellow (Yellow) Urine Appearance Clear (Clear) Urine pH 6.5 (5.0-9.0) Ur Specific [place] 1.007 (1.001-1.035) Urine Protein Negative (Negative) mg/dL Urine Glucose (UA) Negative (Negative) mg/dL
--- NOTE | 2024-07-25 15:29 | PCCCNOTE ---
PT/OT recommendation is for home health. I called [facility] and left a message for Aniyah to call me back.
--- NOTE | 2024-07-25 15:42 | P.PNIM_ITS ---
Progress Note: A&P Assessment and Plan (1) Left-sided muscle weakness: Code(s): M62.81 - Muscle weakness (generalized) Status: Acute Assessment and Plan: 07/25/24: * Awaiting Neurology recommendations. * My assessment is without any overt focal deficits. * Awaiting MRI results. * Fall precautions. (2) Frequent falls: Code(s): R29.6 - Repeated falls Status: Acute Assessment and Plan: 07/25/24: * See plan for #1 above. * Etiology Neuro deficit vs. Pharmacological side effect. * Fall precautions (3) Abnormal urinalysis: Code(s): R82.90 - Unspecified abnormal findings in urine Status: Acute Assessment and Plan: 07/25/24: * Urine culture pending * Start Levaquin 750 mg IVPB daily. (4) Bipolar disorder: Code(s): F31.9 - Bipolar disorder, unspecified Status: Chronic Assessment and Plan: 07/25/24: * Hold Austedo * Continue Zyprexa * Continue Amitriptyline * Continue Atarax * Continue Lamictal (5) Tardive dyskinesia: Code(s): G24.01 - Drug induced subacute dyskinesia Status: Chronic Assessment and Plan: 07/25/24: * Continue plan as in #4 above Time Spent With Patient Time with patient: 15 - 25 minutes Subjective Date/time seen: 07/25/24 0842 Interval history: This very pleasant 59-year-old female patient's P is examined in the emergency room this morning prior to obtaining an inpatient bed after she presented to the emergency room with altered mental status in weakness from home. It was noted that her confusion with waxing and waning. Urinalysis performed in ER showed a urinary tract infection. She was started on antibiotics of Levaquin 750 mg IV piggyback daily. In addition the CT of the head and neck demonstrated no stenosis, intracranial hemorrhage or mass effect. EKG showed normal sinus rhythm without any ST deviation. Urine culture is pending. MRI was ordered for this an and a Neurology consultation which are both still pending. Patient states that recently it was brought to the attention of her and her family that she could be developing a new dementia. She also had recently had an increase in her trazodone and Austedo doses and noted she had been dizzy ever since those had been increased. She does not remember the events of yesterday when she came out of her bathroom unclothed and confused. Review of Systems Review of Systems: All systems reviewed & are unremarkable except as noted in HPI and below Exam Narrative: General: Chronically ill-appearing female supine in bed in no acute distress. HEENT: Normocephalic, atraumatic. PERRL, EOMI. Sclera anicteric. MMM Neck: Supple. No carotid bruits. Respiratory: Lungs are clear to auscultation bilaterally. Cardiovascular: Regular rate and rhythm with S1-S2. Gastrointestinal: Abdomen is soft, nontender, and nondistended with positive bowel sounds. Skin: Warm and dry. No rash or lesions on limited exam. Extremities: No cyanosis, clubbing, or edema. Radial and pedal pulses intact. Neurological: Alert and oriented x3. Cranial nerves 2-12 are grossly intact. Speech is clear. No focal deficit. Psychiatric: Cooperative with appropriate mood and affect. Objective Data Vital Signs Vital Signs: Vital Signs - 24 hr 07/24/24 17:48 07/24/24 17:54 07/24/24 19:12 Temperature 97.6 F Pulse Rate 92 87 Respiratory Rate 23 H Blood Pressure 150/91 H Pulse Oximetry 99 Oxygen Delivery Room Air Room Air 07/24/24 19:13 07/24/24 21:20 07/24/24 22:31 Temperature 97.6 F 97.8 F Pulse Rate 86 74 74 Respiratory Rate 12 16 22 H Blood Pressure 124/80 137/84 140/81 Pulse Oximetry 100 98 99 Oxygen Delivery 07/24/24 22:45 07/24/24 23:00 07/24/24 23:15 Temperature Pulse Rate 83 81 81 Respiratory Rate 21 H 28 H 29 H Blood Pressure Pulse Oximetry 100 99 100 Oxygen Delivery 07/24/24 23:16 07/24/24 23:24 07/24/24 23:31 Temperature 97.8 F Pulse Rate 81 79 82 Respiratory Rate 27 H 20 24 H Blood Pressure 132/76 132/76 Pulse Oximetry 100 98 Oxygen Delivery 07/24/24 23:45 07/25/24 00:00 07/25/24 00:01 Temperature Pulse Rate 82 80 81 Respiratory Rate 27 H 18 20 Blood Pressure 117/58 L Pulse Oximetry Oxygen Delivery 07/25/24 00:15 07/25/24 00:30 07/25/24 00:45 Temperature Pulse Rate 81 83 82 Respiratory Rate 18 18 19 Blood Pressure 100/53 L Pulse Oximetry Oxygen Delivery 07/25/24 00:46 07/25/24 01:00 07/25/24 01:08 Temperature 97.8 F Pulse Rate 83 82 85 Respiratory Rate 19 17 20 Blood Pressure 100/53 L Pulse Oximetry 97 Oxygen Delivery 07/25/24 01:15 07/25/24 01:30 07/25/24 01:31 Temperature Pulse Rate 85 81 79 Respiratory Rate 19 18 19 Blood Pressure 108/51 L Pulse Oximetry 96 96 96 Oxygen Delivery 07/25/24 01:45 07/25/24 02:00 07/25/24 02:15 Temperature Pulse Rate 81 76 78 Respiratory Rate 24 H 15 19 Blood Pressure 107/52 L Pulse Oximetry 97 98 96 Oxygen Delivery 07/25/24 02:16 07/25/24 02:30 07/25/24 02:45 Temperature Pulse Rate 78 76 74 Respiratory Rate 19 18 17 Blood Pressure Pulse Oximetry 97 97 97 Oxygen Delivery 07/25/24 02:59 07/25/24 03:00 07/25/24 03:01 Temperature 97.8 F Pulse Rate 75 74 75 Respiratory Rate 19 17 17 Blood Pressure 107/52 L 105/63 Pulse Oximetry 96 97 96 Oxygen Delivery 07/25/24 03:15 07/25/24 03:30 07/25/24 03:45 Temperature Pulse Rate 78 76 76 Respiratory Rate 13 19 15 Blood Pressure 127/75 Pulse Oximetry 98 98 98 Oxygen Delivery 07/25/24 03:46 07/25/24 04:00 07/25/24 04:15 Temperature Pulse Rate 76 78 81 Respiratory Rate 19 19 18 Blood Pressure Pulse Oximetry 98 98 95 Oxygen Delivery 07/25/24 04:30 07/25/24 04:31 07/25/24 04:45 Temperature Pulse Rate 81 79 77 Respiratory Rate 16 17 17 Blood Pressure 117/69 Pulse Oximetry 96 96 96 Oxygen Delivery 07/25/24 05:00 07/25/24 05:01 07/25/24 05:02 Temperature 97.5 F L Pulse Rate 86 85 85 Respiratory Rate 14 12 22 H Blood Pressure 130/70 130/70 Pulse Oximetry 98 98 98 Oxygen Delivery 07/25/24 05:15 07/25/24 05:16 07/25/24 05:30 Temperature Pulse Rate 79 82 78 Respiratory Rate 18 14 19 Blood Pressure 113/68 Pulse Oximetry 97 98 99 Oxygen Delivery 07/25/24 05:45 07/25/24 06:00 07/25/24 06:01 Temperature Pulse Rate 79 78 77 Respiratory Rate 12 17 22 H Blood Pressure 118/71 Pulse Oximetry 99 97 97 Oxygen Delivery 07/25/24 06:15 07/25/24 06:30 07/25/24 06:45 Temperature Pulse Rate 76 77 76 Respiratory Rate 15 25 H 23 H Blood Pressure 126/67 Pulse Oximetry 98 95 Oxygen Delivery 07/25/24 06:46 07/25/24 06:47 07/25/24 07:00 Temperature 97.8 F Pulse Rate 87 85 78 Respiratory Rate 17 16 15 Blood Pressure 126/67 Pulse Oximetry 97 99 97 Oxygen Delivery 07/25/24 07:15 07/25/24 07:30 07/25/24 07:31 Temperature Pulse Rate 77 75 79 Respiratory Rate 23 H 23 H 22 H Blood Pressure 127/75 Pulse Oximetry 96 97 97 Oxygen Delivery 07/25/24 07:45 07/25/24 08:00 07/25/24 08:15 Temperature Pulse Rate 79 83 86 Respiratory Rate 18 16 22 H Blood Pressure 138/79 Pulse Oximetry 97 98 97 Oxygen Delivery 07/25/24 08:16 07/25/24 08:30 07/25/24 08:45 Temperature Pulse Rate 87 86 92 Respiratory Rate 22 H 30 H 23 H Blood Pressure Pulse Oximetry 97 96 97 Oxygen Delivery 07/25/24 09:00 07/25/24 09:01 07/25/24 09:15 Temperature Pulse Rate 89 92 88 Respiratory Rate 32 H 22 H 20 Blood Pressure 130/64 Pulse Oximetry 97 98 97 Oxygen Delivery 07/25/24 09:30 07/25/24 09:45 07/25/24 09:46 Temperature Pulse Rate 94 86 90 Respiratory Rate 22 H 19 Blood Pressure Pulse Oximetry 97 100 Oxygen Delivery 07/25/24 09:46 07/25/24 10:00 07/25/24 10:15 Temperature Pulse Rate 87 85 80 Respiratory Rate 31 H 24 H 18 Blood Pressure 130/70 Pulse Oximetry 99 100 Oxygen Delivery 07/25/24 10:30 07/25/24 10:31 07/25/24 10:32 Temperature Pulse Rate 89 85 Respiratory Rate 18 22 H Blood Pressure 103/62 Pulse Oximetry Oxygen Delivery Room Air 07/25/24 10:45 07/25/24 12:00 07/25/24 13:38 Temperature 99.2 F Pulse Rate 81 73 78 Respiratory Rate 28 H 16 18 Blood Pressure 129/92 H 135/81 Pulse Oximetry 98 96 98 Oxygen Delivery Intake/Output Intake/Output: Intake & Output 07/22/24 07/23/24 07/24/24 07/25/24 23:59 23:59 23:59 23:59 Intake Total 238 Balance 238 Meds/Results Medications: Active Medications Generic Name Dose Route Start Last Admin Trade Name Freq PRN Reason Stop Dose Admin Acetaminophen 650 mg 07/24/24 22:40 Acetaminophen 325 Mg Tablet PO Q6H PRN Mild Pain (1-3) or Fever Amitriptyline HCl 100 mg 07/25/24 21:00 Amitriptyline Hcl 25 Mg Tablet PO HS SANKET Aspirin 81 mg 07/25/24 08:00 07/25/24 08:10 Aspirin 81 Mg Chewable Tablet PO 81 mg DAILY@0800 SANKET Administration Hydroxyzine HCl 50 mg 07/25/24 09:00 07/25/24 14:26 Hydroxyzine Hcl 25 Mg Tablet PO 50 mg TID SANKET Administration Lamotrigine 200 mg 07/25/24 09:00 07/25/24 09:46 Lamotrigine 100 Mg Tablet PO 200 mg QAM SANKET Administration Lamotrigine 50 mg 07/25/24 21:00 Lamotrigine 50 Mg Tablet PO HS SANKET Olanzapine 15 mg 07/25/24 09:00 07/25/24 09:46 Olanzapine 5 Mg Tablet PO 15 mg DAILY SANKET Administration Perflutren Lipid Microsphere 0 ml 07/24/24 22:39 Perflutren Lipid Microspheres 1.5 Ml Vial Diluted To 10 Ml Total Volume IV PUSH 07/27/24 22:39 ONCE PRN adequate visualization Protocol Prazosin HCl 1 mg 07/25/24 21:00 Prazosin Hcl 1 Mg Capsule PO HS SANKET Propranolol HCl 20 mg 07/25/24 09:00 07/25/24 09:46 Propranolol Hcl 20 Mg Tablet PO 20 mg Q12HR SANKET Administration Trazodone HCl 100 mg 07/25/24 21:00 Trazodone Hcl 50 Mg Tablet PO HS SANKET Radiology Results: ITS Impressions Chest X-Ray 07/24/24 19:31 IMPRESSION: No focal infiltrate or effusion. Head/Neck CTA 07/24/24 19:34 IMPRESSION: 1. 0% stenosis of the proximal right internal carotid artery relative to normal distal artery lumen diameter (NASCET criteria). 2. 0% stenosis of the proximal left internal carotid artery relative to normal distal artery lumen diameter. No acute intracranial hemorrhage or suspicious mass effect. Inflammatory sinus disease Brain MRI 07/25/24 14:02 IMPRESSION: 1. Normal aging brain. No acute intracranial process. Labs Labs: Laboratory Results - last 24 hr 07/24/24 07/24/24 07/24/24 18:05 18:22 18:47 WBC 7.5 RBC 4.22 Hgb 12.3 Hct 37.0 MCV 87.7 MCH 29.1 MCHC 33.2 RDW 14.1 Plt Count 316 MPV 9.0 Immature Gran % (Auto) 0.3 Neut % (Auto) 57.9 Lymph % (Auto) 32.8 [place] % (Auto) 7.1 Eos % (Auto) 1.5 Baso % (Auto) 0.4 Lymph # (Auto) 2.46 [place] # (Auto) 0.5 Eos # (Auto) 0.1 Baso # (Auto) 0.0 Abs Immat Gran (auto) 0.02 Absolute Neuts (auto) 4.4 Absolute Nucleated RBC 0.000 Nucleated RBC % 0.0 PT 12.2 INR 0.9 APTT 25.1 Sodium 138 Potassium 3.5 Chloride 108 H Carbon Dioxide 29 Anion Gap 1 L BUN 7 Creatinine 0.80 Estim Creat Clear Calc Not Reportable Estimated GFR > 60 Glucose 85 Calcium 8.9 Total Bilirubin 0.3 AST 12 L ALT 11 Alkaline Phosphatase 91 Ammonia < 9 L Total Protein 7.0 Albumin 4.0 Triglycerides Cholesterol LDL Cholesterol Direct HDL Direct Urine Color Urine Appearance Urine pH Ur Specific [place] Urine Protein Urine Glucose (UA) Urine Ketones Ur Blood (Man) Urine Nitrate Urine Bilirubin Urine Urobilinogen Leukocyte Esterase Rfl Urine RBC Urine WBC Ur Squamous Epith Cells Urine Bacteria Urine Casts Urine Opiates Screen Urine Methadone Screen Ur Barbiturates Screen Ur Phencyclidine Scrn Ur Amphetamine Screen U Benzodiazepines Scrn Urine Cocaine Screen U Cannabinoids Screen Ethyl Alcohol < 10 Influenza A (RT-PCR) Negative Influenza B (RT-PCR) Negative SARS-CoV-2 RNA (RT-PCR) Negative 07/24/24 07/25/24 07/25/24 19:11 05:18 08:55 WBC 7.0 RBC 4.25 Hgb 12.4 Hct 38.2 MCV 89.9 MCH 29.2 MCHC 32.5 RDW 14.3 Plt Count 302 MPV 9.0 Immature Gran % (Auto) 0.1 Neut % (Auto) 56.1 Lymph % (Auto) 35.9 [place] % (Auto) 5.3 Eos % (Auto) 1.7 Baso % (Auto) 0.9 Lymph # (Auto) 2.50 [place] # (Auto) 0.4 Eos # (Auto) 0.1 Baso # (Auto) 0.1 Abs Immat Gran (auto) 0.01 Absolute Neuts (auto) 3.9 Absolute Nucleated RBC 0.000 Nucleated RBC % 0.0 PT INR APTT Sodium 138 Potassium 3.8 Chloride 110 H Carbon Dioxide 28 Anion Gap 0 L BUN 12 D Creatinine 0.80 Estim Creat Clear Calc 56 Estimated GFR > 60 Glucose 81 Calcium 8.9 Total Bilirubin 0.2 AST 13 L ALT 11 Alkaline Phosphatase 81 Ammonia Total Protein 6.0 L Albumin 3.4 L Triglycerides 100 Cholesterol 156 LDL Cholesterol Direct 51 HDL Direct 70 Urine Color Yellow Urine Appearance Clear Urine pH 6.5 Ur Specific [place] 1.007 Urine Protein Negative Urine Glucose (UA) Negative Urine Ketones Negative Ur Blood (Man) Negative Urine Nitrate Negative Urine Bilirubin Negative Urine Urobilinogen 0.2 Leukocyte Esterase Rfl 3+ H Urine RBC 0-2 Urine WBC 6-10 H Ur Squamous Epith Cells Occasional Urine Bacteria None seen Urine Casts 0-2 Urine Opiates Screen Negative Urine Methadone Screen Negative Ur Barbiturates Screen Negative Ur Phencyclidine Scrn Negative Ur Amphetamine Screen Negative U Benzodiazepines Scrn Negative Urine Cocaine Screen Negative U Cannabinoids Screen Positive A Ethyl Alcohol Influenza A (RT-PCR) Influenza B (RT-PCR) SARS-CoV-2 RNA (RT-PCR) Quality VTE Prophylaxis VTE prophylaxis: mechanical ordered
--- NOTE | 2024-07-25 16:06 | PCCCNOTE ---
[facility] called back, they do take [employer] insurance. She will call the pt's primary care provider, but they will plan to see the pt Thursday or Thursday. Face-sheet faxed to [facility].
--- NOTE | 2024-07-25 16:12 | PCCCNOTE ---
Pt's son notified and is agreeable with [facility]. Pt's Address will be [address] [place] [address] [place], [place]. with her son.
[2024-07-25] MEDS: levoFLOXacin 750 MG/D5W 150 ML 750 MG/150 ML BAG 100 MG IVPB (17:26)
[2024-07-25] MEDS: AMITRIPTYLINE HCL 25 MG TABLET 100 MG PO (22:12)
[2024-07-25] MEDS: lamoTRIgine 50 MG TABLET PO (22:12)
[2024-07-25] MEDS: PRAZOSIN HCL 1 MG CAPSULE PO (22:12)
[2024-07-25] MEDS: traZODone HCL 50 MG TABLET 100 MG PO (22:12)
[2024-07-26 05:00] VITALS: BP 129/72; PULSE 78; RESP 20; TEMP 35.9; O2SAT 95
[2024-07-26 07:45] LABS: Basophils Absolute Auto 0.1 K/mm3 (0.0-0.1); Basophils Percent Auto 0.7 % (0.2-1.2); Eosinophils Absolute Auto 0.2 K/mm3 (0-0.3); Eosinophils Percent Auto 2.7 % (0-4.4); Hematocrit 39.4 % (37.0-47.0); Hemoglobin 12.8 g/dL (12.0-15.0); Immature Granulocyte Absolute 0.01 K/mm3 (0.00-0.031); Immature Granulocyte Percent A 0.1 % (0-0.5); Lymphocytes Absolute Auto 2.37 K/mm3 (0.9-3.2); Lymphocytes Percent Auto 35.4 % (18.3-44.2); Mean Corpuscular HGB Conc 32.5 g/dl (32-36); Mean Corpuscular Hemoglobin 28.6 pg (26-34); Mean Corpuscular Volume 88.1 fl (80-100); Mean Platelet Volume 8.8 fl (7.4-10.4); Monocytes Absolute Auto 0.5 K/mm3 (0.1-0.6); Monocytes Percent Auto 7.3 % (2.6-8.5); Neutrophils Absolute Auto 3.6 K/mm3 (1.3-6.7); Neutrophils Percent Auto 53.8 % (45.5-73.1); Platelet Count Result 315 k/mm3 (150-375); Red Blood Count 4.47 M/mm3 (4.2-5.4); Red Cell Distribution Width 14.1 % (11.5-14.5); White Blood Count 6.7 K/mm3 (4.5-10.0)
[2024-07-26 07:57] LABS: Alanine Aminotransferase 12 U/L (6-35); Albumin Level 3.9 g/dL (3.5-5.1); Alkaline Phosphatase 76 U/L (38-126); Anion Gap 3 mmol/L (4-12); Aspartate Amino Transferase 12 U/L (14-36); Bilirubin,Total 0.4 mg/dL (0.2-1.3); Blood Urea Nitrogen 12 mg/dL (7-17); Calcium 9.3 mg/dL (8.4-10.2); Carbon Dioxide 28 mmol/L (22-30); Chloride 105 mmol/L (98-107); Estimated CRCL calculation 50 ml/min; Estimated Glomerular Filt Rate > 60; Glucose 100 mg/dL (65-110); Magnesium 1.8 mg/dL (1.6-2.3); Potassium 4.2 mmol/L (3.4-5.0); Sodium 136 mmol/L (137-145)
[2024-07-26 08:00] VITALS: BP 142/86; PULSE 80
[2024-07-26 08:40] VITALS: BP 137/90; BP 144/93; PULSE 101; PULSE 85
[2024-07-26 08:58] VITALS: PULSE 100
[2024-07-26] MEDS: OLANZapine 5 MG TABLET 15 MG PO (08:58)
[2024-07-26] MEDS: PROPRANOLOL HCL 20 MG TABLET PO (08:58)
[2024-07-26] MEDS: ASPIRIN 81 MG CHEWABLE TABLET PO (08:58)
[2024-07-26] MEDS: hydrOXYzine HCL 25 MG TABLET 50 MG PO ×2 (08:58→15:15)
[2024-07-26] MEDS: lamoTRIgine 100 MG TABLET 200 MG PO (08:58)
[2024-07-26 09:40] VITALS: O2SAT 95
--- NOTE | 2024-07-26 10:07 | P.PNIM_ITS ---
Progress Note: A&P Assessment and Plan (1) Left-sided muscle weakness: Code(s): M62.81 - Muscle weakness (generalized) Status: Acute Assessment and Plan: 07/25/24: * Neurology consulted * My assessment is without any overt focal deficits. * Awaiting MRI results. * Fall precautions. (2) Frequent falls: Code(s): R29.6 - Repeated falls Status: Acute Assessment and Plan: 07/25/24: * See plan for #1 above. * Etiology Neuro deficit vs. Pharmacological side effect. * Fall precautions (3) Abnormal urinalysis: Code(s): R82.90 - Unspecified abnormal findings in urine Status: Acute Assessment and Plan: 07/25/24: * Urine culture pending * Start Levaquin 750 mg IVPB daily. (4) Bipolar disorder: Code(s): F31.9 - Bipolar disorder, unspecified Status: Chronic Assessment and Plan: 07/25/24: * Hold Austedo * Continue Zyprexa * Continue Amitriptyline * Continue Atarax * Continue Lamictal (5) Tardive dyskinesia: Code(s): G24.01 - Drug induced subacute dyskinesia Status: Chronic Assessment and Plan: 07/25/24: * Continue plan as in #4 above Time Spent With Patient Time with patient: Greater than 35 minutes Subjective Date/time seen: 07/26/24 10:07 Interval history: This very pleasant 59-year-old female patient's P is examined in the emergency room this morning prior to obtaining an inpatient bed after she presented to the emergency room with altered mental status in weakness from home. It was noted that her confusion with waxing and waning. Urinalysis performed in ER showed a urinary tract infection. She was started on antibiotics of Levaquin 750 mg IV piggyback daily. In addition the CT of the head and neck demonstrated no stenos is, intracranial hemorrhage or mass effect. EKG showed normal sinus rhythm without any ST deviation. Urine culture is pending. MRI was ordered for this an and a Neurology consultation which are both still pending. There is a concern for developing a new dementia. recent increase in her trazodone and Austedo doses and noted she had been dizzy ever since those had been increased. Assuming care. pt is seen and examined. Review of Systems Review of Systems: 12 systems were reviewed and are negativ e except for as per HPI. All systems reviewed & are unremarkable except as noted in HPI and below Exam Narrative: General: Chronically ill-appearing female supine in bed in no acute distress. HEENT: Normocephalic, atraumatic. PERRL, EOMI. Sclera anicteric. MMM Neck: Supple. No carotid bruits. Respiratory: Lungs are clear to auscultation bilaterally. Cardiovascular: Regular rate and rhythm with S1-S2. Gastrointestinal: Abdomen is soft, nontender, and nondistended with positive bowel sounds. Skin: Warm and dry. No rash or lesions on limited exam. Extremities: No cyanosis, clubbing, or edema. Radial and pedal pulses intact. Neurological: Alert and oriented x3. Cranial nerves 2-12 are grossly intact. Speech is clear. No focal deficit. Psychiatric: Cooperative with appropriate mood and affect. Objective Data Vital Signs Vital Signs: Vital Signs - 24 hr 07/25/24 10:15 07/25/24 10:30 07/25/24 10:31 Temperature Pulse Rate 80 89 Respiratory Rate 18 18 Blood Pressure Pulse Oximetry Oxygen Delivery Room Air 07/25/24 10:32 07/25/24 10:45 07/25/24 12:00 Temperature Pulse Rate 85 81 73 Respiratory Rate 22 H 28 H 16 Blood Pressure 103/62 129/92 H Pulse Oximetry 98 96 Oxygen Delivery 07/25/24 13:38 07/25/24 16:14 07/25/24 20:00 Temperature 99.2 F 98.9 F Pulse Rate 78 Respiratory Rate 18 Blood Pressure 135/81 Pulse Oximetry 98 Oxygen Delivery Room Air 07/25/24 21:15 07/26/24 05:00 07/26/24 08:00 Temperature 96.4 F L 96.6 F L Pulse Rate 79 78 80 Respiratory Rate 18 20 Blood Pressure 127/73 129/72 142/86 H Pulse Oximetry 97 95 Oxygen Delivery 07/26/24 08:07 07/26/24 08:40 07/26/24 08:40 Temperature Pulse Rate 85 101 H Respiratory Rate Blood Pressure 144/93 H 137/90 Pulse Oximetry Oxygen Delivery Room Air 07/26/24 08:58 07/26/24 09:40 Temperature Pulse Rate 100 Respiratory Rate Blood Pressure Pulse Oximetry 95 Oxygen Delivery Room Air Intake/Output Intake/Output: Intake & Output 07/23/24 07/24/24 07/25/24 07/26/24 23:59 23:59 23:59 23:59 Intake Total 978 560 Output Total 1200 1150 Balance -222 -992 Meds/Results Medications: Active Medications Generic Name Dose Route Start Last Admin Trade Name Freq PRN Reason Stop Dose Admin Acetaminophen 650 mg 07/24/24 22:40 Acetaminophen 325 Mg Tablet PO Q6H PRN Mild Pain (1-3) or Fever Amitriptyline HCl 100 mg 07/25/24 21:00 07/25/24 22:12 Amitriptyline Hcl 25 Mg Tablet PO 100 mg HS SANKET Administration Aspirin 81 mg 07/25/24 08:00 07/26/24 08:58 Aspirin 81 Mg Chewable Tablet PO 81 mg DAILY@0800 SANKET Administration Hydroxyzine HCl 50 mg 07/25/24 09:00 07/26/24 08:58 Hydroxyzine Hcl 25 Mg Tablet PO 50 mg TID SANKET Administration Levofloxacin/Dextrose 750 mg in 150 mls @ 100 mls/hr 07/25/24 17:00 07/25/24 17:26 Levaquin 750 Mg/D5w 150 Ml IVPB 100 mls/hr Q24H SANKET Administration Lamotrigine 200 mg 07/25/24 09:00 07/26/24 08:58 Lamotrigine 100 Mg Tablet PO 200 mg QAM SANKET Administration Lamotrigine 50 mg 07/25/24 21:00 07/25/24 22:12 Lamotrigine 50 Mg Tablet PO 50 mg HS SANKET Administration Olanzapine 15 mg 07/25/24 09:00 07/26/24 08:58 Olanzapine 5 Mg Tablet PO 15 mg DAILY SANKET Administration Perflutren Lipid Microsphere 0 ml 07/24/24 22:39 Perflutren Lipid Microspheres 1.5 Ml Vial Diluted To 10 Ml Total Volume IV PUSH 07/27/24 22:39 ONCE PRN adequate visualization Protocol Prazosin HCl 1 mg 07/25/24 21:00 07/25/24 22:12 Prazosin Hcl 1 Mg Capsule PO 1 mg HS SANKET Administration Propranolol HCl 20 mg 07/25/24 09:00 07/26/24 08:58 Propranolol Hcl 20 Mg Tablet PO 20 mg Q12HR SANKET Administration Trazodone HCl 100 mg 07/25/24 21:00 07/25/24 22:12 Trazodone Hcl 50 Mg Tablet PO 100 mg HS SANKET Administration Radiology Results: ITS Impressions Chest X-Ray 07/24/24 19:31 IMPRESSION: No focal infiltrate or effusion. Head/Neck CTA 07/24/24 19:34 IMPRESSION: 1. 0% stenosis of the proximal right internal carotid artery relative to normal distal artery lumen diameter (NASCET criteria). 2. 0% stenosis of the proximal left internal carotid artery relative to normal distal artery lumen diameter. No acute intracranial hemorrhage or suspicious mass effect. Inflammatory sinus disease Brain MRI 07/25/24 14:02 IMPRESSION: 1. Normal aging brain. No acute intracranial process. Labs Labs: Laboratory Results - last 24 hr 07/26/24 07:27 WBC 6.7 RBC 4.47 Hgb 12.8 Hct 39.4 MCV 88.1 MCH 28.6 MCHC 32.5 RDW 14.1 Plt Count 315 MPV 8.8 Immature Gran % (Auto) 0.1 Neut % (Auto) 53.8 Lymph % (Auto) 35.4 [place] % (Auto) 7.3 Eos % (Auto) 2.7 Baso % (Auto) 0.7 Lymph # (Auto) 2.37 [place] # (Auto) 0.5 Eos # (Auto) 0.2 Baso # (Auto) 0.1 Abs Immat Gran (auto) 0.01 Absolute Neuts (auto) 3.6 Absolute Nucleated RBC 0.000 Nucleated RBC % 0.0 Sodium 136 L Potassium 4.2 Chloride 105 Carbon Dioxide 28 Anion Gap 3 L BUN 12 Creatinine 0.90 Estim Creat Clear Calc 50 Estimated GFR > 60 Glucose 100 Calcium 9.3 Magnesium 1.8 Total Bilirubin 0.4 AST 12 L ALT 12 Alkaline Phosphatase 76 Total Protein 7.0 Albumin 3.9 Quality VTE Prophylaxis VTE prophylaxis: mechanical ordered
[2024-07-26 13:58] VITALS: BP 142/86; PULSE 80; RESP 16; TEMP 36.6; O2SAT 97
--- NOTE | 2024-07-26 14:28 | P.DS_ITS ---
DS: Admitting Diagnosis Discharge Date 07/26 Admitting Diagnosis dizzy DS: Discharge Diagnosis Discharge Diagnosis (1) Left-sided muscle weakness: Code(s): M62.81 - Muscle weakness (generalized) Status: Acute (2) Frequent falls: Code(s): R29.6 - Repeated falls Status: Acute (3) Abnormal urinalysis: Code(s): R82.90 - Unspecified abnormal findings in urine Status: Acute (4) Bipolar disorder: Code(s): F31.9 - Bipolar disorder, unspecified Status: Chronic (5) Tardive dyskinesia: Code(s): G24.01 - Drug induced subacute dyskinesia Status: Chronic DS: Summary Hospital Course Hospital Course: This very pleasant 59-year-old female patient's P is examined in the emergency room this morning prior to obtaining an inpatient bed after she presented to the emergency room with altered mental status in weakness from home. It was noted that her confusion with waxing and waning. Urinalysis performed in ER showed a urinary tract infection. She was started on antibiotics of Levaquin 750 mg IV piggyback daily. In addition the CT of the head and neck demonstrated no stenosis, intracranial hemorrhage or mass effect. EKG showed normal sinus rhythm without any ST deviation. Urine culture is pending. MRI was ordered for this an and a Neurology consultation MRI brain: Normal aging brain. No acute intracranial process. There is a concern for developing a new dementia.recent increase in her trazodone and Austedo doses and noted she had been dizzy ever since those had been increased. Neurology was consulted- no new changes. Pt needs to f/u with psych for med adjustments and re eval. No other acute intervention are needed, pt was stable for discharge with a close f./u with PCP and psych. Status at Discharge Functional status at discharge: independent ambulation Overall status at discharge: patient is progressing back to baseline Time Spent with Patient Time attestation: Total time spent providing and/or coordinating discharge services: Time spent: Greater than 30 minutes Exam Narrative: General: Chronically ill-appearing female supine in bed in no acute distress. HEENT: Normocephalic, atraumatic. PERRL, EOMI. Sclera anicteric. MMM Neck: Supple. No carotid bruits. Respiratory: Lungs are clear to auscultation bilaterally. Cardiovascular: Regular rate and rhythm with S1-S2. Gastrointestinal: Abdomen is soft, nontender, and nondistended with positive bowel sounds. Skin: Warm and dry. No rash or lesions on limited exam. Extremities: No cyanosis, clubbing, or edema. Radial and pedal pulses intact. Neurological: Alert and oriented x3. Cranial nerves 2-12 are grossly intact. Speech is clear. No focal deficit. Psychiatric: Cooperative with appropriate mood and affect. DS: Data Data Completed and Pending Labs on day of discharge: Labs from last 24 hours 07/26/24 07:27 WBC 6.7 RBC 4.47 Hgb 12.8 Hct 39.4 MCV 88.1 MCH 28.6 MCHC 32.5 RDW 14.1 Plt Count 315 MPV 8.8 Immature Gran % (Auto) 0.1 Neut % (Auto) 53.8 Lymph % (Auto) 35.4 Howell % (Auto) 7.3 Eos % (Auto) 2.7 Baso % (Auto) 0.7 Lymph # (Auto) 2.37 Howell # (Auto) 0.5 Eos # (Auto) 0.2 Baso # (Auto) 0.1 Abs Immat Gran (auto) 0.01 Absolute Neuts (auto) 3.6 Absolute Nucleated RBC 0.000 Nucleated RBC % 0.0 Sodium 136 L Potassium 4.2 Chloride 105 Carbon Dioxide 28 Anion Gap 3 L BUN 12 Creatinine 0.90 Estim Creat Clear Calc 50 Estimated GFR > 60 Glucose 100 Calcium 9.3 Magnesium 1.8 Total Bilirubin 0.4 AST 12 L ALT 12 Alkaline Phosphatase 76 Total Protein 7.0 Albumin 3.9 Discharge Plan Discharge Consulting providers: Aaron Nugent Patient Disposition: Home Health Service Discharge Instructions: Per Care Coordination Patient has been arranged to have [facility] for RN, PT, OT visits. [facility] will call to arrange a time to see you after discharge. [phone] Urinalysis performed in ER showed a urinary tract infection. She was started on antibiotics of Levaquin 750 mg- please finish the couorse. In addition the CT of the head and neck demonstrated no stenosis, intracranial hemorrhage or mass effect. EKG showed normal sinus rhythm. MRI brain: Normal aging brain. No acute intracranial process. There is a concern for developing a new dementia.recent increase in trazodone and Austedo doses and note dizzy episodes. Neurology was consulted- no new changes. Please f/u with psych for med adjustments and re eval. No other acute intervention are needed, pt was stable for discharge with a close f./u with PCP and psych. Patient Instructions: Antibiotic Form Patient Language: Salvadorean Stand Alone Forms: General Discharge Information Follow-up/Referrals: UNKNOWN,DOCTOR [Primary Care Provider] - 1 Week (follow up with your primary care provider and psych for further eval.) Discharge Medications: New levofloxacin 500 mg tablet 500 mg PO DAILY 3 Days Qty: 3 0RF Continued amitriptyline 100 mg tablet 100 mg PO HS Austedo 12 mg tablet 24 mg PO BID hydroxyzine HCl 50 mg tablet 50 mg PO TID propranolol 20 mg tablet 20 mg PO Q12H lamotrigine 100 mg tablet 200 mg PO .every morning Patient Comments: 2 100mg tabs every morning and 0.5 100mg tablet nightly trazodone 100 mg tablet 100 mg PO .every night prazosin 1 mg capsule 1 mg PO .nightly olanzapine 15 mg tablet 15 mg PO DAILY Date of admission: 07/24/24 20:06 Primary Care Provider: UNKNOWN,DOCTOR Admitting Provider: Jewel Dale Attending physician on admission: Kena Devi Condition: Stable Quality VTE Prophylaxis VTE prophylaxis: mechanical ordered Hospitalist MIPS Heart Failure (Exclusion) Patient has history of Heart Transplant or Left Ventricular Assistive Device?: No IF YES, STOP HERE Heart Failure (Qualifier) Patient has current or prior documentation of LVEF less than or equal to 40%, or mod/servere depressed LVSF?: No IF NO, STOP HERE
--- NOTE | 2024-07-26 22:39 | ECHO_ITS ---
Patient Info Name: Nory Cuevas Age: 59 years : 1965 Gender: Female Ht: 64 in Wt: 152 lbs BSA: 1.78 m2 HR: 100 bpm BP: 137 / 90 mmHg Heart Rhythm: Sinus Rhythm Technical Quality: Good Exam Date: 07/26/2024 11:05 AM Exam Location: Echo Lab Patient Status: Outpatient Admit Date: 07/24/2024 Staff Ordering Physician: Asiya Dash PA-C Parts Processor: Janine Beaulieu RDCS Attending Provider: Kena Devi Referring Physician: Hardy VANEGAS; Exam Type: CA echo doppler color flow Study Info Indications - left sided weakness Complete two-dimensional, color flow and Doppler transthoracic echocardiogram is performed. Summary 1. Complete two-dimensional, color flow and Doppler transthoracic echocardiogram is performed. 2. Left ventricular chamber dimension is normal. 3. There is no increased left ventricular wall thickness. 4. Left ventricular systolic function is normal with an ejection fraction by Biplane Method of Discs of 64 %. 5. Left ventricular septal wall motion is normal. 6. The left ventricular diastolic function is normal. 7. Right ventricular chamber dimension is normal. 8. Right ventricular systolic function is normal. 9. Left atrial chamber dimension is normal. 10. Right atrial chamber dimension is normal. 11. There is no aortic valve stenosis. 12. There is no mitral valve regurgitation. 13. There is no tricuspid valve regurgitation. 14. PASP cannot be calculated as there is insufficient TR jet. Left Ventricle Left ventricular chamber dimension is normal. There is no increased left ventricular wall thickness. Left ventricular systolic function is normal with an ejection fraction by Biplane Method of Discs of 64 %. Left ventricular septal wall motion is normal. The left ventricular diastolic function is normal. Right Ventricle Right ventricular chamber dimension is normal. Right ventricular systolic function is normal. Left Atria Left atrial chamber dimension is normal. Right Atria Right atrial chamber dimension is normal. Aortic Valve The aortic valve is trileaflet. There is no aortic valve sclerosis. There is no aortic valve stenosis. There is no aortic valve regurgitation. Pulmonic Valve The pulmonic valve is normal. There is no pulmonic valve stenosis. There is no pulmonic regurgitation. Mitral Valve The mitral valve has normal leaflets. There is no mitral valve stenosis. There is no mitral valve regurgitation. Tricuspid Valve The tricuspid valve leaflets are normal. There is no significant tricuspid valve stenosis. There is no tricuspid valve regurgitation. PASP cannot be calculated as there is insufficient TR jet. Pericardium/Pleural The pericardium appears normal. There is no pericardial effusion. Inferior Vena Cava Normal inferior vena cava with >50% collapse upon inspiration consistent with normal right atrial pressure, 3 mmHg. Aorta The aortic root size at the sinus of Valsalva is normal. The prox ascending aorta size is normal. Left Ventricular Outflow Tract Name Value Normal LVOT 2D LVOT Diameter 2.0 cm LVOT Doppler LVOT Peak Gradient 10 mmHg LVOT Mean Gradient 6 mmHg LVOT VTI 26 cm LVOT VTI/AV VTI Ratio 1.1 LVOT Stroke Volume 83 ml LVOT CO 6.9 l/min LVOT CI 3.9 l/min/m2 Pulmonic Valve Name Value Normal RVOT Doppler RVOT Peak Gradient 4 mmHg PV Doppler PV Peak Gradient 6 mmHg Mitral Valve Name Value Normal MV Doppler MV Decel Dunn 303 cm/s2 MV PHT 60 ms MV Area (PHT) 3.7 cm2 4.0-5.0 MV Diastolic Function MV E Peak Velocity 62 cm/s MV A Peak Velocity 90 cm/s MV E/A 0.7 MV Decel Time 206 ms MV Annular TDI MV E/e' (Septal) 9.1 <=8.0 MV E/e' (Lateral) 5.5 <=8.0 MV E/e' (Average) 7.3 Tricuspid Valve Name Value Normal Estimated PAP/RSVP RA Pressure 3 mmHg <=5 Aorta Name Value Normal Ascending Aorta Ao Root Diameter (MM) 2.7 cm Ao Root Diam Index (MM) 1.5 cm/m2 Aortic Valve Name Value Normal AV Doppler AV Peak Velocity 164 cm/s AV Peak Gradient 11 mmHg AV Mean Gradient 5 mmHg AV VTI 23 cm AV Area (Cont Eq VTI) 3.6 cm2 >=3.0 AV Area (Cont Eq Tyree) 3.0 cm2 AV Regurgitation 2D LVOT Area 3.1 cm2 Ventricles Name Value Normal LV Dimensions 2D/MM IVS Diastolic Thickness (2D) 0.9 cm 0.6-1.0 LVID Diastole (2D) 3.6 cm 3.8-5.2 LVIW Diastolic Thickness (2D) 0.9 cm 0.6-0.9 LVID Systole (2D) 2.5 cm 2.2-3.5 LVOT Diameter 2.0 cm LV Mass (2D Cubed) 92.67 g 67.00-162.00 LV Mass Index (2D Cubed) 52 g/m2 43-95 Relative Wall Thickness (2D) 0.51 LV Fractional Shortening/Ejection Fraction 2D/MM LV Fractional Shortening (2D) 32 % 27-45 LV EF (2D Teicholz) 61 % 54-74 LV Diastolic Volume (4C MOD) 42 ml LV EF (4C MOD) 68 % LV Diastolic Volume (2C MOD) 33 ml LV EF (2C MOD) 57 % LV Diastolic Volume (BP MOD) 38 ml 46-106 LV Diastolic Volume Index (BP MOD) 22 ml/m2 29-61 LV Systolic Volume (BP MOD) 14 ml 14-42 LV Systolic Volume Index (BP MOD) 8 ml/m2 8-24 LV EF (BP MOD) 64 % 54-74 LV Diastolic Length (4C) 7.4 cm LV Systolic Length (4C) 5.8 cm LV Stroke Volume (4C MOD) 28 ml Atria Name Value Normal LA Dimensions LA Dimension (MM) 3.7 cm 2.7-3.8 LA Volume (4C A-L) 25 ml LA Volume (BP A-L) 28 ml RA Dimensions RA Area (4C) 11.1 cm2 <=18.0 Report Signatures
== END 2024-07-26 15:50 | disposition home health service (06) ==
LOC: ANHED 20:11 → ANH3MEDSUR 20:33
PROVIDERS: Emergency Medicine; Physician Assistant; Admitting Provider Internal Medicine; Emergency Provider General Practice; Visit Provider Nurse Practitioner Adult Health
DX: N39.0 Urinary tract infection, site not specified (principal); M62.81 Muscle weakness (generalized); R29.6 Repeated falls; F31.9 Bipolar disorder, unspecified; G24.01 Drug induced subacute dyskinesia; Z87.891 Personal history of nicotine dependence; Z20.822 Contact with and (suspected) exposure to COVID-19; Z79.899 Other long term (current) drug therapy; Z88.0 Allergy status to penicillin
CPT/HCPCS: 36415; 70496; 70498; 70551; 71045; 80053; 80061; 80307; 81001; 82077; 82140; 83735; 85025; 85610; 85730; 87086; 87636; 93005; 93306; 97161; 97165; 97530; 97535; 99285; A9270; G0378; J1956; Q9967

== ENCOUNTER 2025-02-11 12:29 | Emergency (ER) | payer MEDICARE, SELFPAY ==
--- NOTE | ~2025-02-11 | CT_ITS ---
Non-contrast CT scan of the Abdomen and Pelvis Clinical indication: Abdominal pain Technique: 2.5 mm axial scans were obtained through the abdomen and pelvis without intravenous or or al contrast. Dose reduction technique was used on this scan by utilizing automated exposure control a nd iterative reconstruction technique. The dose-length product (DLP) was 210.08 mGy-cm. Findings: Images through the lung bases reveal no abnormalities. There is no evidence of renal or ureteral calculi. The kidneys and the ureters are nondilated. The liver, spleen, pancreas, gallbladder, and adrenals appear normal. There is no aortic aneurysm. There is no evidence of bowel obstruction. Images through the pelvis were performed. There is no evidence of ascites or lymphadenopathy. Urinary bladder unremarkable. No pelvic mass seen. Impression: No significant abnormality seen. Reviewed, dictated and finalized at [facility]. Impression: No significant abnormality seen.
--- NOTE | ~2025-02-11 | XR_ITS ---
Clinical Indication: Cough PA and lateral views of the chest: Comparison: 07/24/2024 Findings: The lungs are clear, without evidence of focal consolidation or pleural effusion. Cardiome diastinal silhouette is within normal limits. Bones and soft tissues are unremarkable. Impression: Normal chest. Reviewed, dictated and finalized at location . Impression: Normal chest.
--- OUTSIDE RECORDS SUMMARY | 2025-02-11 12:31 | XMS_ITS | Patient Health Record ---
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 saturated fats (solid at room temperature, such as butter, margarine, Crisco, etc) and low in sodium (<2,000mg per day). Consume plenty of fruits/vegetables, healthy grains/whole grains, unsaturated/healthy fats (liquid at room temperature, such as olive oil, sunflower seed oil, canola, vegetable, etc.). Exercise regularly - Develop an exercise routine. 30 minutes of moderate exercise (walking at a brisk pace) 5 times per week is recommended. You should work hard enough to cause a sweat but still be able to talk with others while exercising. Exercise improves overall health - improves blood pressure and blood sugar, helps control weight, reduces stress, and improves mood. Practice stress reduction techniques, such as guided imagery, journaling, aromatherapy, acupuncture/acupress ure, deep breathing, etc. Practice healthy sleep hygiene - maintain regular routine, no caffeine after 1PM, no exercise 1-2 hours prior to bedtime, keep bedroom dark and cool, no TV or electronics while in bed. Consider melatonin as needed. Consider cognitive behavioral therapy for insomnia (CBT-I). Consider/Continue therapy. Consider substance cessation therapy as needed - contact office if desiring medication assisted therapy. Manage co-morbid conditions. Continue monitoring symptoms - report persistent or worsening/concerning symptoms to the office or go to the ER. For mental health CRISIS, please reach out to [phone] (National Suicide and Crisis Lifeline), 911, go to the emergency department, or contact the [facility] Crisis Unit/Team. Follow up as scheduled in 4 weeks or sooner if necessary. Follow up with PCP and/or other specialists as advised. NEXT STEP: UDS and CSA at follow up??? Consider adjusting or switching olanzapine. 04/19/2024 Primary insomnia (ICD-10 - F51.01) Duration (acute/chronic), stability (controlled/uncontro lled): Chronic, mostly well controlled, recent worse due to anxiety, see HPI Current medications/efficacy : Somewhat Previous medication trials: Trazodone, hydroxyzine, quetiapine, amitriptyline Current/previous therapies: Denies current therapy Examination as documented - see pertinent aspects of office visit documentation. Pertinent diagnostics: PATIENT AGREEABLE TO LAB COLLECTION AT FOLLOW UP RECOMMENDATIONS: STOP quetiapine and START olanzapine - educated patient/guardian on adverse effects, risks and benefits, as well as alternative treatments START clonazepam as prescribed - educated patient/guardian on adverse effects, risks and benefits, as well as alternative treatments Continue other medications as prescribed - educated patient/guardian on adverse effects, risks and benefits, as well as alternative treatments Practice stress reduction techniques, such as guided imagery, journaling, aromatherapy, acupuncture/acupress ure, deep breathing, etc. Practice healthy sleep hygiene - maintain regular routine, no caffeine after 1PM, no exercise 1-2 hours prior to bedtime, keep bedroom dark and cool, no TV or electronics while in bed. Consider melatonin as needed. Consider cognitive behavioral therapy for insomnia (CBT-I). Consider substance cessation therapy as needed - contact office if desiring medication assisted therapy. Manage co-morbid conditions. Continue monitoring symptoms - report persistent or worsening/concerning symptoms to the office or go to the ER. For mental health CRISIS, please reach out to [phone] (National Suicide and Crisis Lifeline), 911, go to the emergency department, or contact the [facility] Crisis Unit/Team. Follow up as scheduled in 4 weeks or sooner if necessary. Follow up with PCP and/or other specialists as advised. NEXT STEP: LABS, UDS and CSA at follow up. 04/19/2024 Bipolar 2 disorder (ICD-10 - F31.81) Duration (acute/chronic), stability (controlled/uncontro lled): Chronic, mildly uncontrolled based on reported symptoms, see HPI Current medications/efficacy : Somewhat Previous medication trials: [place], Buspar, Zoloft, Seroquel, Lamictal, Effexor,amitriptylin e, Gabapentin, Ingrezza, benztropine, olanzapine, clonazepam Current/previous therapies: Denies current therapy Examination as documented - see pertinent aspects of office visit documentation. Pertinent diagnostics: PATIENT AGREEABLE TO LAB COLLECTION AT FOLLOW UP RECOMMENDATIONS: STOP quetiapine and START olanzapine - educated patient/guardian on adverse effects, risks and benefits, as well as alternative treatments Continue other medications as prescribed - educated patient/guardian on adverse effects, risks and benefits, as well as alternative treatments Consume well balanced diet, preferably low in saturated fats (solid at room temperature, such as butter, margarine, Crisco, etc) and low in sodium (<2,000mg per day). Consume plenty of fruits/vegetables, healthy grains/whole grains, unsaturated/healthy fats (liquid at room temperature, such as olive oil, sunflower seed oil, canola, vegetable, etc.). Exercise regularly - Develop an exercise routine. 30 minutes of moderate exercise (walking at a brisk pace) 5 times per week is recommended. You should work hard enough to cause a sweat but still be able to talk with others while exercising. Exercise improves overall health - improves blood pressure and blood sugar, helps control weight, reduces stress, and improves mood. Practice stress reduction techniques, such as guided imagery, journaling, aromatherapy, acupuncture/acupress ure, deep breathing, etc. Practice healthy sleep hygiene - maintain regular routine, no caffeine after 1PM, no exercise 1-2 hours prior to bedtime, keep bedroom dark and cool, no TV or electronics while in bed. Consider melatonin as needed. Consider cognitive behavioral therapy for insomnia (CBT-I). Consider/Continue therapy. Consider substance cessation therapy as needed - contact office if desiring medication assisted therapy. Manage co-morbid conditions. Continue monitoring symptoms - report persistent or worsening/concerning symptoms to the office or go to the ER. For mental health CRISIS, please reach out to [phone] (National Suicide and Crisis Lifeline), 911, go to the emergency department, or contact the [facility] Crisis Unit/Team. Follow up as scheduled in 4 weeks or sooner if necessary. Follow up with PCP and/or other specialists as advised. NEXT STEP: LABS, UDS and CSA at follow up. Consider adjusting or switching olanzapine. 03/23/2024 Tardive dyskinesia (ICD-10 - G24.01) AIMS performed today. Continue [place] Begin benztropine. Take as prescribed. Reviewed purpose, benefits, and risks - including dry mouth, constipation, urinary retention, confusion, and hallucinations. 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 Pertinent diagnostics: AGREEABLE TO LABS AND UDS AT FOLLOW UP RECOMMENDATIONS: Continue/modify medications as prescribed - educated patient/guardian on adverse effects, risks and benefits, as well as alternative treatments Consider/Continue therapy. Manage co-morbid conditions. Continue monitoring symptoms - report persistent or worsening/concerning symptoms to the office or go to the ER. For mental health CRISIS, please reach out to [phone] ([place] Suicide and Crisis Lifeline), 911, go to the emergency department, or contact the [facility] Crisis Unit/Team. Follow up as scheduled or sooner if necessary. Follow up with PCP and/or other specialists as advised. 03/23/2024 Primary insomnia (ICD-10 - F51.01) Sleep hygiene - Discussed sleep hygiene measures that include: setting a goal to get at least 7-8 hours of sleep each night, maintaining a regular bedtime and wake up time even on weekends and days off; avoid naps during the day but if one is necessary, limit to no more than 30 minutes; avoid alcohol, caffeinated beverages and nicotine products for at least 6 hours prior to bedtime; avoid exercise and large meals within 4 hours of bedtime; limit or turn off electronics when in bed; and set aside some time to relax before bedtime. 05/20/2024 Primary insomnia (ICD-10 - F51.01) Duration (acute/chronic), stability (controlled/uncontro lled): Chronic, mostly well controlled, improved with current medication regimen Current medications/efficacy : Somewhat Previous medication trials: Trazodone, hydroxyzine, quetiapine, amitriptyline Current/previous therapies: Denies current therapy Examination as documented - see pertinent aspects of office visit documentation. Pertinent diagnostics: LABS COLLECTED IN OFFICE TODAY - AWAITING RESULTS RECOMMENDATIONS: Continue/modify medications as prescribed - educated patient/guardian on adverse effects, risks and benefits, as well as alternative treatments Practice stress reduction techniques, such as guided imagery, journaling, aromatherapy, acupuncture/acupress ure, deep breathing, etc. Practice healthy sleep hygiene - maintain regular routine, no caffeine after 1PM, no exercise 1-2 hours prior to bedtime, keep bedroom dark and cool, no TV or electronics while in bed. Consider melatonin as needed. Consider cognitive behavioral therapy for insomnia (CBT-I). Consider substance cessation therapy as needed - contact office if desiring medication assisted therapy. Manage co-morbid conditions. Continue monitoring symptoms - report persistent or worsening/concerning symptoms to the office or go to the ER. For mental health CRISIS, please reach out to [phone] ([place] Suicide and Crisis Lifeline), 911, go to the emergency department, or contact the [facility] Crisis Unit/Team. Follow up as scheduled in 4 weeks or sooner if necessary. Follow up with PCP and/or other specialists as advised. NEXT STEP: UDS and CSA at follow up??? 05/20/2024 Anxiety (ICD-10 - F41.9) 09/02/2024 Bipolar 2 disorder (ICD-10 - F31.81) Duration (acute/chronic), stability (controlled/uncontro lled): Chronic, improving with current medication reimgen, room for improvement Current medications/efficacy : Somewhat, room for improvement Previous medication trials: [place], Buspar, Zoloft, Seroquel, Lamictal, Effexor,amitriptylin e, Gabapentin, Ingrezza, benztropine, olanzapine, clonazepam Current/previous therapies: Denies current therapy Examination as documented - see pertinent aspects of office visit documentation. Pertinent diagnostics: LABS COMPLETED IN 04/2024, SEE CHART RECOMMENDATIONS: RESTART olanzapine as prescribed to assist with mood/stability - educated patient/guardian on adverse effects, risks and benefits, as well as alternative treatments Continue other medications as prescribed - educated patient/guardian on adverse effects, risks and benefits, as well as alternative treatments Consume well balanced diet, preferably low in saturated fats (solid at room temperature, such as butter, margarine, Crisco, etc) and low in sodium (<2,000mg per day). Consume plenty of fruits/vegetables, healthy grains/whole grains, unsaturated/healthy fats (liquid at room temperature, such as olive oil, sunflower seed oil, canola, vegetable, etc.). Exercise regularly - Develop an exercise routine. 30 minutes of moderate exercise (walking at a brisk pace) 5 times per week is recommended. You should work hard enough to cause a sweat but still be able to talk with others while exercising. Exercise improves overall health - improves blood pressure and blood sugar, helps control weight, reduces stress, and improves mood. Practice stress reduction techniques, such as guided imagery, journaling, aromatherapy, acupuncture/acupress ure, deep breathing, etc. Practice healthy sleep hygiene - maintain regular routine, no caffeine after 1PM, no exercise 1-2 hours prior to bedtime, keep bedroom dark and cool, no TV or electronics while in bed. Consider melatonin as needed. Consider cognitive behavioral therapy for insomnia (CBT-I). Consider/Continue therapy. Consider substance cessation therapy as needed - contact office if desiring medication assisted therapy. Manage co-morbid conditions. Continue monitoring symptoms - report persistent or worsening/concerning symptoms to the office or go to the ER. For mental health CRISIS, please reach out to [phone] ([place] Suicide and Crisis Lifeline), 911, go to the emergency department, or contact the [facility] Crisis Unit/Team. Follow up as scheduled in 4 weeks or sooner if necessary. Follow up with PCP and/or other specialists as advised. NEXT STEP: Consider medication adjustments as needed. 07/12/2024 PTSD (post-traumatic stress disorder) (ICD-10 - F43.10) See assessment and plan for bipolar II disorder 07/12/2024 Bipolar 2 disorder (ICD-10 - F31.81) Duration (acute/chronic), stability (controlled/uncontro lled): Chronic, improving with current medication reimgen, room for improvement Current medications/efficacy : Somewhat, room for improvement Previous medication trials: [place], Buspar, Zoloft, Seroquel, Lamictal, Effexor,amitriptylin e, Gabapentin, Ingrezza, benztropine, olanzapine, clonazepam Current/previous therapies: Denies current therapy Examination as documented - see pertinent aspects of office visit documentation. Pertinent diagnostics: LABS COMPLETED IN 04/2024, SEE CHART RECOMMENDATIONS: INCREASE propranolol as prescribed to assist with anxiety - educated patient/guardian on adverse effects, risks and benefits, as well as alternative treatments INCREASE lamotrigine as prescribed to assist with mood/stability - educated patient/guardian on adverse effects, risks and benefits, as well as alternative treatments START prazosin as prescribed to assist with PTSD - educated patient/guardian on adverse effects, risks and benefits, as well as alternative treatments SWITCH from clonazepam to alprazolam as requested/prescribed - educated patient/guardian on adverse effects, risks and benefits, as well as alternative treatments Continue other medications as prescribed - educated patient/guardian on adverse effects, risks and benefits, as well as alternative treatments Consume well balanced diet, preferably low in saturated fats (solid at room temperature, such as butter, margarine, Crisco, etc) and low in sodium (<2,000mg per day). Consume plenty of fruits/vegetables, healthy grains/whole grains, unsaturated/healthy fats (liquid at room temperature, such as olive oil, sunflower seed oil, canola, vegetable, etc.). Exercise regularly - Develop an exercise routine. 30 minutes of moderate exercise (walking at a brisk pace) 5 times per week is recommended. You should work hard enough to cause a sweat but still be able to talk with others while exercising. Exercise improves overall health - improves blood pressure and blood sugar, helps control weight, reduces stress, and improves mood. Practice stress reduction techniques, such as guided imagery, journaling, aromatherapy, acupuncture/acupress ure, deep breathing, etc. Practice healthy sleep hygiene - maintain regular routine, no caffeine after 1PM, no exercise 1-2 hours prior to bedtime, keep bedroom dark and cool, no TV or electronics while in bed. Consider melatonin as needed. Consider cognitive behavioral therapy for insomnia (CBT-I). Consider/Continue therapy. Consider substance cessation therapy as needed - contact office if desiring medication assisted therapy. Manage co-morbid conditions. Continue monitoring symptoms - report persistent or worsening/concerning symptoms to the office or go to the ER. For mental health CRISIS, please reach out to [phone] (National Suicide and Crisis Lifeline), 911, go to the emergency department, or contact the [facility] Crisis Unit/Team. Follow up as scheduled in 4 weeks or sooner if necessary. Follow up with PCP and/or other specialists as advised. NEXT STEP: Consider adjusting or switching olanzapine as needed. Consider increasing propranolol as needed. Consider increasing lamotrigine as needed. Consider other medication adjustments as needed. 11/03/2024 Mood disorder (ICD-10 - F39) Duration (acute/chronic), stability (controlled/uncontro lled): Chronic, somewhat controlled with current medication regimen, still some room for improvement, see HPI Current medications/efficacy : Somewhat, room for improvement Previous medication trials: [place], Buspar, Zoloft, Seroquel, Lamictal, Effexor,amitriptylin e, Gabapentin, Ingrezza, benztropine, olanzapine, clonazepam Current/previous therapies: Denies current therapy Examination as documented - see pertinent aspects of office visit documentation. Pertinent diagnostics: LABS COMPLETED IN 04/2024, SEE CHART Differential diagnosis: mixed anxiety/depressive disorder vs bipolar spectrum disorder DISCUSSION DURING PREVIOUS APPOINTMENT: Provider and patient discussed patient's reported symptoms. Provider wonders if patient symptoms may be more related to uncontrolled anxiety/depression (rather than underlying bipolar disorder) since patient has had such profound improvements with taking medications as currently prescribed - amitriptyline, propranolol, trazodone, clonazepam (only taking 0.5mg at bedtime to help with sleep). Provider discussed adjusting trazodone or amitriptyline to assist further with anxiety/depression - patient prefers adjusting the amitriptyline due to medication being most effective in improving patient's anxiety historically, provider agreeable. Provider also recommends increasing propranolol ER slightly to assist further with anxiety - patient agreeable. RECOMMENDATIONS: START gabapentin as prescribed to assist with anxiety/pain - educated patient/guardian on adverse effects, risks and benefits, as well as alternative treatments CONTINUE clonazepam as prescribed, only taking about once weekly per patient report - educated patient/guardian on adverse effects, risks and benefits, as well as alternative treatments Continue other medications as prescribed - educated patient/guardian on adverse effects, risks and benefits, as well as alternative treatments Consume well balanced diet, preferably low in saturated fats (solid at room temperature, such as butter, margarine, Crisco, etc) and low in sodium (<2,000mg per day). Consume plenty of fruits/vegetables, healthy grains/whole grains, unsaturated/healthy fats (liquid at room temperature, such as olive oil, sunflower seed oil, canola, vegetable, etc.). Exercise regularly - Develop an exercise routine. 30 minutes of moderate exercise (walking at a brisk pace) 5 times per week is recommended. You should work hard enough to cause a sweat but still be able to talk with others while exercising. Exercise improves overall health - improves blood pressure and blood sugar, helps control weight, reduces stress, and improves mood. Practice stress reduction techniques, such as guided imagery, journaling, aromatherapy, acupuncture/acupress ure, deep breathing, etc. Practice healthy sleep hygiene - maintain regular routine, no caffeine after 1PM, no exercise 1-2 hours prior to bedtime, keep bedroom dark and cool, no TV or electronics while in bed. Consider melatonin as needed. Consider cognitive behavioral therapy for insomnia (CBT-I). Consider/Continue therapy. Consider substance cessation therapy as needed - contact office if desiring medication assisted therapy. Manage co-morbid conditions. Continue monitoring symptoms - report persistent or worsening/concerning symptoms to the office or go to the ER. For mental health CRISIS, please reach out to [phone] ([place] [facility]icide and Crisis Lif[facility]), 911, go to the emergency department, or contact the [facility] Crisis Unit/Team. Follow up as scheduled in 4 weeks or sooner if necessary. Follow up with PCP and/or other specialists as advised. NEXT STEP: Consider medication adjustments as needed. 02/17/2024 Primary insomnia (ICD-10 - F51.01) Sleep hygiene - Discussed sleep hygiene measures that include: setting a goal to get at least 7-8 hours of sleep each night, maintaining a regular bedtime and wake up time even on weekends and days off; avoid naps during the day but if one is necessary, limit to no more than 30 minutes; avoid alcohol, caffeinated beverages and nicotine products for at least 6 hours prior to bedtime; avoid exercise and large meals within 4 hours of bedtime; limit or turn off electronics when in bed; and set aside some time to relax before bedtime. 06/21/2024 Bipolar 2 disorder (ICD-10 - F31.81) Duration (acute/chronic), stability (controlled/uncontro lled): Chronic, improving with current medication reimgen, room for improvement - anxiety/depression slightly exacerbated due to recent loss of nephew, see HPI Current medications/efficacy : Somewhat, room for improvement Previous medication trials: [place], Buspar, Zoloft, Seroquel, Lamictal, Effexor,amitriptylin e, Gabapentin, Ingrezza, benztropine, olanzapine, clonazepam Current/previous therapies: Denies current therapy Examination as documented - see pertinent aspects of office visit documentation. Pertinent diagnostics: LABS COMPLETED IN 04/2024, SEE CHART RECOMMENDATIONS: INCREASE propranolol as prescribed to assist with anxiety - educated patient/guardian on adverse effects, risks and benefits, as well as alternative treatments INCREASE lamotrigine as prescribed to assist with mood/stability - educated patient/guardian on adverse effects, risks and benefits, as well as alternative treatments Continue other medications as prescribed - educated patient/guardian on adverse effects, risks and benefits, as well as alternative treatments Consume well balanced diet, preferably low in saturated fats (solid at room temperature, such as butter, margarine, Crisco, etc) and low in sodium (<2,000mg per day). Consume plenty of fruits/vegetables, healthy grains/whole grains, unsaturated/healthy fats (liquid at room temperature, such as olive oil, sunflower seed oil, canola, vegetable, etc.). Exercise regularly - Develop an exercise routine. 30 minutes of moderate exercise (walking at a brisk pace) 5 times per week is recommended. You should work hard enough to cause a sweat but still be able to talk with others while exercising. Exercise improves overall health - improves blood pressure and blood sugar, helps control weight, reduces stress, and improves mood. Practice stress reduction techniques, such as guided imagery, journaling, aromatherapy, acupuncture/acupress ure, deep breathing, etc. Practice healthy sleep hygiene - maintain regular routine, no caffeine after 1PM, no exercise 1-2 hours prior to bedtime, keep bedroom dark and cool, no TV or electronics while in bed. Consider melatonin as needed. Consider cognitive behavioral therapy for insomnia (CBT-I). Consider/Continue therapy. Consider substance cessation therapy as needed - contact office if desiring medication assisted therapy. Manage co-morbid conditions. Continue monitoring symptoms - report persistent or worsening/concerning symptoms to the office or go to the ER. For mental health CRISIS, please reach out to [phone] (National Suicide and Crisis Lifeline), 911, go to the emergency department, or contact the [facility] Crisis Unit/Team. Follow up as scheduled in 3 weeks or sooner if necessary. Follow up with PCP and/or other specialists as advised. NEXT STEP: Consider adjusting or switching olanzapine as needed. Consider increasing propranolol as needed. Consider increasing lamotrigine as needed. Consider other medication adjustments as needed. Patient agreeable to increasing propranolol to assist with anxiety. Agreeable to increasing lamotrigine to assist with mood/stability. Agreeable to continuing other medications as currently prescribed. Agreeable to following up in 3 weeks, sooner if necessary. -Medications Effectiveness: Somewhat, room for improvement -Medication Adherence: Yes -Side effects: Dry mouth, falls -Previous Medication Trials: [place], Buspar, Zoloft, Seroquel, Lamictal, Effexor, Gabapentin, Ingrezza, benztropine, olanzapine, clonazepam -Sleep: Been pretty good. Sleeping about 5-6 hours daily -Nightmares/Nig ht terrors: Denies -Appetite: Slightly worse since loss of nephew - previously reported I have been eating good. -Mood: Emotionally distraught since loss of nephew but improving - previously reported I've been in a great mood. -Anxiety Rating (10/10 being the worst): 8-9/10 since last appointment, worse since loss of nephew - previously reported 5-6/10 - A lot more manageable -Depression Rating (10/10 being the worst): Denies, I don't really have any depression. -Anger/Irritabi lity Rating (10/10 being the worst): Anger hasn't been that bad - previously reported 4-5/10, subjectively a lot better -Suicidal ideation: Denies -Thoughts of Self-Harm: Denies -Homicidal ideation: Denies -Psychotic Symptoms/Behavi ors (hallucinations , delusions, paranoia, etc.): Denies -Manic Behaviors: Anger/irritabil ity -Obsessive/Comp ulsive Behaviors: Denies -Panic/PTSD: Panic attacks - -Coping strategies: Going downstairs in my room, sitting and being quiet. Goals: Improve anxiety Social Activities: Substance Use: -Caffeine - Coffee, 2-3 cups daily -Nicotine - no, without nicotine for about 19 months -Alcohol - no, without alcohol for about 3 years -Marijuana - about once or twice weekly -Other Substances - Denies Medical concerns or hospitalization s: No new medical concerns reported Therapy: Denies Labs: LABS COMPLETED IN 04/2024, SEE CHART 09/30/2024 PTSD (post-traumatic stress disorder) (ICD-10 - F43.10) See assessment and plan for mood disorder 06/21/2024 Primary insomnia (ICD-10 - F51.01) Duration (acute/chronic), stability (controlled/uncontro lled): Chronic, mostly well controlled, improved with current medication regimen Current medications/efficacy : Somewhat Previous medication trials: Trazodone, hydroxyzine, quetiapine, amitriptyline Current/previous therapies: Denies current therapy Examination as documented - see pertinent aspects of office visit documentation. Pertinent diagnostics: LABS COMPLETED IN 04/2024, SEE CHART RECOMMENDATIONS: Continue/modify medications as prescribed - educated patient/guardian on adverse effects, risks and benefits, as well as alternative treatments Practice stress reduction techniques, such as guided imagery, journaling, aromatherapy, acupuncture/acupress ure, deep breathing, etc. Practice healthy sleep hygiene - maintain regular routine, no caffeine after 1PM, no exercise 1-2 hours prior to bedtime, keep bedroom dark and cool, no TV or electronics while in bed. Consider melatonin as needed. Consider cognitive behavioral therapy for insomnia (CBT-I). Consider substance cessation therapy as needed - contact office if desiring medication assisted therapy. Manage co-morbid conditions. Continue monitoring symptoms - report persistent or worsening/concerning symptoms to the office or go to the ER. For mental health CRISIS, please reach out to [phone] (National Suicide and Crisis Lifeline), 911, go to the emergency department, or contact the [facility] Crisis Unit/Team. Follow up as scheduled in 3 weeks or sooner if necessary. Follow up with PCP and/or other specialists as advised. NEXT STEP: Consider medication adjustments as needed. 11/18/2024 Mood disorder (ICD-10 - F39) Duration (acute/chronic), stability (controlled/uncontro lled): Chronic, somewhat controlled with current medication regimen, still some room for improvement, see HPI Current medications/efficacy : Somewhat, room for improvement Previous medication trials: [place], Buspar, Zoloft, Seroquel, Lamictal, Effexor,amitriptylin e, Gabapentin, Ingrezza, benztropine, olanzapine, clonazepam Current/previous therapies: Denies current therapy Examination as documented - see pertinent aspects of office visit documentation. Pertinent diagnostics: LABS COMPLETED IN 04/2024, SEE CHART Differential diagnosis: mixed anxiety/depressive disorder vs bipolar spectrum disorder DISCUSSION DURING PREVIOUS APPOINTMENT: Provider and patient discussed patient's reported symptoms. Provider wonders if patient symptoms may be more related to uncontrolled anxiety/depression (rather than underlying bipolar disorder) since patient has had such profound improvements with taking medications as currently prescribed - amitriptyline, propranolol, trazodone, clonazepam (only taking 0.5mg at bedtime to help with sleep). Provider discussed adjusting trazodone or amitriptyline to assist further with anxiety/depression - patient prefers adjusting the amitriptyline due to medication being most effective in improving patient's anxiety historically, provider agreeable. Provider also recommends increasing propranolol ER slightly to assist further with anxiety - patient agreeable. RECOMMENDATIONS: INCREASE gabapentin as prescribed to assist with anxiety/pain - educated patient/guardian on adverse effects, risks and benefits, as well as alternative treatments RESTART hydroxyzine as prescribed to assist with anxiety - educated patient/guardian on adverse effects, risks and benefits, as well as alternative treatments Continue other medications as prescribed - educated patient/guardian on adverse effects, risks and benefits, as well as alternative treatments Consume well balanced diet, preferably low in saturated fats (solid at room temperature, such as butter, margarine, Crisco, etc) and low in sodium (<2,000mg per day). Consume plenty of fruits/vegetables, healthy grains/whole grains, unsaturated/healthy fats (liquid at room temperature, such as olive oil, sunflower seed oil, canola, vegetable, etc.). Exercise regularly - Develop an exercise routine. 30 minutes of moderate exercise (walking at a brisk pace) 5 times per week is recommended. You should work hard enough to cause a sweat but still be able to talk with others while exercising. Exercise improves overall health - improves blood pressure and blood sugar, helps control weight, reduces stress, and improves mood. Practice stress reduction techniques, such as guided imagery, journaling, aromatherapy, acupuncture/acupress ure, deep breathing, etc. Practice healthy sleep hygiene - maintain regular routine, no caffeine after 1PM, no exercise 1-2 hours prior to bedtime, keep bedroom dark and cool, no TV or electronics while in bed. Consider melatonin as needed. Consider cognitive behavioral therapy for insomnia (CBT-I). Consider/Continue therapy. Consider substance cessation therapy as needed - contact office if desiring medication assisted therapy. Manage co-morbid conditions. Continue monitoring symptoms - report persistent or worsening/concerning symptoms to the office or go to the ER. For mental health CRISIS, please reach out to [phone] (National Suicide and Crisis Lifeline), 911, go to the emergency department, or contact the [facility] Crisis Unit/Team. Follow up as scheduled in 4 weeks or sooner if necessary. Follow up with PCP and/or other specialists as advised. NEXT STEP: Consider medication adjustments as needed. 12/15/2024 Mood disorder (ICD-10 - F39) Duration (acute/chronic), stability (controlled/uncontro lled): Chronic, somewhat controlled with current medication regimen, still some room for improvement, see HPI Current medications/efficacy : Somewhat, room for improvement Previous medication trials: [place], Buspar, Zoloft, Seroquel, Lamictal, Effexor,amitriptylin e, Gabapentin, Ingrezza, benztropine, olanzapine, clonazepam Current/previous therapies: Denies current therapy Examination as documented - see pertinent aspects of office visit documentation. Pertinent diagnostics: LABS COMPLETED IN 04/2024, SEE CHART Differential diagnosis: mixed anxiety/depressive disorder vs bipolar spectrum disorder DISCUSSION DURING PREVIOUS APPOINTMENT: Provider and patient discussed patient's reported symptoms. Provider wonders if patient symptoms may be more related to uncontrolled anxiety/depression (rather than underlying bipolar disorder) since patient has had such profound improvements with taking medications as currently prescribed - amitriptyline, propranolol, trazodone, clonazepam (only taking 0.5mg at bedtime to help with sleep). Provider discussed adjusting trazodone or amitriptyline to assist further with anxiety/depression - patient prefers adjusting the amitriptyline due to medication being most effective in improving patient's anxiety historically, provider agreeable. Provider also recommends increasing propranolol ER slightly to assist further with anxiety - patient agreeable. RECOMMENDATIONS: INCREASE gabapentin as prescribed to assist with anxiety/pain - educated patient/guardian on adverse effects, risks and benefits, as well as alternative treatments Continue other medications as prescribed - educated patient/guardian on adverse effects, risks and benefits, as well as alternative treatments Consume well balanced diet, preferably low in saturated fats (solid at room temperature, such as butter, margarine, Crisco, etc) and low in sodium (<2,000mg per day). Consume plenty of fruits/vegetables, healthy grains/whole grains, unsaturated/healthy fats (liquid at room temperature, such as olive oil, sunflower seed oil, canola, vegetable, etc.). Exercise regularly - Develop an exercise routine. 30 minutes of moderate exercise (walking at a brisk pace) 5 times per week is recommended. You should work hard enough to cause a sweat but still be able to talk with others while exercising. Exercise improves overall health - improves blood pressure and blood sugar, helps control weight, reduces stress, and improves mood. Practice stress reduction techniques, such as guided imagery, journaling, aromatherapy, acupuncture/acupress ure, deep breathing, etc. Practice healthy sleep hygiene - maintain regular routine, no caffeine after 1PM, no exercise 1-2 hours prior to bedtime, keep bedroom dark and cool, no TV or electronics while in bed. Consider melatonin as needed. Consider cognitive behavioral therapy for insomnia (CBT-I). Consider/Continue therapy. Consider substance cessation therapy as needed - contact office if desiring medication assisted therapy. Manage co-morbid conditions. Continue monitoring symptoms - report persistent or worsening/concerning symptoms to the office or go to the ER. For mental health CRISIS, please reach out to [phone] (National Suicide and Crisis Lifeline), 911, go to the emergency department, or contact the [facility] Crisis Unit/Team. Follow up as scheduled in 4 weeks or sooner if necessary. Follow up with PCP and/or other specialists as advised. NEXT STEP: Consider medication adjustments as needed. 01/05/2025 Mood disorder (ICD-10 - F39) Duration (acute/chronic), stability (controlled/uncontro lled): Chronic, well controlled with recent medication adjustments, see HPI Current medications/efficacy : Yes Previous medication trials: [place], Buspar, Zoloft, Seroquel, Lamictal, Effexor,amitriptylin e, Gabapentin, Ingrezza, benztropine, olanzapine, clonazepam Current/previous therapies: Denies current therapy Examination as documented - see pertinent aspects of office visit documentation. Pertinent diagnostics: LABS COMPLETED IN 04/2024, SEE CHART Differential diagnosis: mixed anxiety/depressive disorder vs bipolar spectrum disorder DISCUSSION DURING PREVIOUS APPOINTMENT: Provider and patient discussed patient's reported symptoms. Provider wonders if patient symptoms may be more related to uncontrolled anxiety/depression (rather than underlying bipolar disorder) since patient has had such profound improvements with taking medications as currently prescribed - amitriptyline, propranolol, trazodone, clonazepam (only taking 0.5mg at bedtime to help with sleep). Provider discussed adjusting trazodone or amitriptyline to assist further with anxiety/depression - patient prefers adjusting the amitriptyline due to medication being most effective in improving patient's anxiety historically, provider agreeable. Provider also recommends increasing propranolol ER slightly to assist further with anxiety - patient agreeable. RECOMMENDATIONS: Continue medications as prescribed - educated patient/guardian on adverse effects, risks and benefits, as well as alternative treatments Consume well balanced diet, preferably low in saturated fats (solid at room temperature, such as butter, margarine, Crisco, etc) and low in sodium (<2,000mg per day). Consume plenty of fruits/vegetables, healthy grains/whole grains, unsaturated/healthy fats (liquid at room temperature, such as olive oil, sunflower seed oil, canola, vegetable, etc.). Exercise regularly - Develop an exercise routine. 30 minutes of moderate exercise (walking at a brisk pace) 5 times per week is recommended. You should work hard enough to cause a sweat but still be able to talk with others while exercising. Exercise improves overall health - improves blood pressure and blood sugar, helps control weight, reduces stress, and improves mood. Practice stress reduction techniques, such as guided imagery, journaling, aromatherapy, acupuncture/acupress ure, deep breathing, etc. Practice healthy sleep hygiene - maintain regular routine, no caffeine after 1PM, no exercise 1-2 hours prior to bedtime, keep bedroom dark and cool, no TV or electronics while in bed. Consider melatonin as needed. Consider cognitive behavioral therapy for insomnia (CBT-I). Consider/Continue therapy. Consider substance cessation therapy as needed - contact office if desiring medication assisted therapy. Manage co-morbid conditions. Continue monitoring symptoms - report persistent or worsening/concerning symptoms to the office or go to the ER. For mental health CRISIS, please reach out to [phone] (National Suicide and Crisis Lifeline), 911, go to the emergency department, or contact the [facility] Crisis Unit/Team. Follow up as scheduled in 4 weeks or sooner if necessary. Follow up with PCP and/or other specialists as advised. NEXT STEP: Consider medication adjustments as needed. 02/02/2025 Anxiety (ICD-10 - F41.9) See assessment and plan for mood disorder 02/02/2025 Mood disorder (ICD-10 - F39) Duration (acute/chronic), stability (controlled/uncontro lled): Chronic, well controlled with recent medication adjustments, see HPI Current medications/efficacy : Yes Previous medication trials: [place], Buspar, Zoloft, Seroquel, Lamictal, Effexor,amitriptylin e, Gabapentin, Ingrezza, benztropine, olanzapine, clonazepam Current/previous therapies: Denies current therapy Examination as documented - see pertinent aspects of office visit documentation. Pertinent diagnostics: LABS COMPLETED IN 04/2024, SEE CHART Differential diagnosis: mixed anxiety/depressive disorder vs bipolar spectrum disorder DISCUSSION DURING PREVIOUS APPOINTMENT: Provider and patient discussed patient's reported symptoms. Provider wonders if patient symptoms may be more related to uncontrolled anxiety/depression (rather than underlying bipolar disorder) since patient has had such profound improvements with taking medications as currently prescribed - amitriptyline, propranolol, trazodone, clonazepam (only taking 0.5mg at bedtime to help with sleep). Provider discussed adjusting trazodone or amitriptyline to assist further with anxiety/depression - patient prefers adjusting the amitriptyline due to medication being most effective in improving patient's anxiety historically, provider agreeable. Provider also recommends increasing propranolol ER slightly to assist further with anxiety - patient agreeable. RECOMMENDATIONS: Continue medications as prescribed - educated patient/guardian on adverse effects, risks and benefits, as well as alternative treatments Consume well balanced diet, preferably low in saturated fats (solid at room temperature, such as butter, margarine, Crisco, etc) and low in sodium (<2,000mg per day). Consume plenty of fruits/vegetables, healthy grains/whole grains, unsaturated/healthy fats (liquid at room temperature, such as olive oil, sunflower seed oil, canola, vegetable, etc.). Exercise regularly - Develop an exercise routine. 30 minutes of moderate exercise (walking at a brisk pace) 5 times per week is recommended. You should work hard enough to cause a sweat but still be able to talk with others while exercising. Exercise improves overall health - improves blood pressure and blood sugar, helps control weight, reduces stress, and improves mood. Practice stress reduction techniques, such as guided imagery, journaling, aromatherapy, acupuncture/acupress ure, deep breathing, etc. Practice healthy sleep hygiene - maintain regular routine, no caffeine after 1PM, no exercise 1-2 hours prior to bedtime, keep bedroom dark and cool, no TV or electronics while in bed. Consider melatonin as needed. Consider cognitive behavioral therapy for insomnia (CBT-I). Consider/Continue therapy. Consider substance cessation therapy as needed - contact office if desiring medication assisted therapy. Manage co-morbid conditions. Continue monitoring symptoms - report persistent or worsening/concerning symptoms to the office or go to the ER. For mental health CRISIS, please reach out to [phone] ([place] Suicide and Crisis Lifeline), 911, go to the emergency department, or contact the [facility] Crisis Unit/Team. Follow up as scheduled in 4 weeks or sooner if necessary. Follow up with PCP and/or other specialists as advised. NEXT STEP: Consider medication adjustments as needed. 01/05/2025 PTSD (post-traumatic stress disorder) (ICD-10 - F43.10) See assessment and plan for mood disorder 12/15/2024 PTSD (post-traumatic stress disorder) (ICD-10 - F43.10) See assessment and plan for mood disorder 11/18/2024 PTSD (post-traumatic stress disorder) (ICD-10 - F43.10) See assessment and plan for mood disorder 09/30/2024 Primary insomnia (ICD-10 - F51.01) Duration (acute/chronic), stability (controlled/uncontro lled): Chronic, mostly well controlled, improved with current medication regimen Current medications/efficacy : Somewhat Previous medication trials: Trazodone, hydroxyzine, quetiapine, amitriptyline Current/previous therapies: Denies current therapy Examination as documented - see pertinent aspects of office visit documentation. Pertinent diagnostics: LABS COMPLETED IN 04/2024, SEE CHART Provider and patient discussed patient's reported symptoms. Provider wonders if patient symptoms may be more related to uncontrolled anxiety/depression (rather than underlying bipolar disorder) since patient has had such profound improvements with taking medications as currently prescribed - amitriptyline, propranolol, trazodone, clonazepam (only taking 0.5mg at bedtime to help with sleep). Provider discussed adjusting trazodone or amitriptyline to assist further with anxiety/depression - patient prefers adjusting the amitriptyline due to medication being most effective in improving patient's anxiety historically, provider agreeable. Provider also recommends increasing propranolol ER slightly to assist further with anxiety - patient agreeable. RECOMMENDATIONS: INCREASE amitriptyline as prescribed to assist further with anxiety/depression/s leep, adjusting medication with patient collaboration with the hopes of titrating off of clonazepam in the future - educated patient/guardian on adverse effects, risks and benefits, as well as alternative treatments CONTINUE clonazepam as prescribed, will plan to taper when able - educated patient/guardian on adverse effects, risks and benefits, as well as alternative treatments Continue/modify medications as prescribed - educated patient/guardian on adverse effects, risks and benefits, as well as alternative treatments Practice stress reduction techniques, such as guided imagery, journaling, aromatherapy, acupuncture/acupress ure, deep breathing, etc. Practice healthy sleep hygiene - maintain regular routine, no caffeine after 1PM, no exercise 1-2 hours prior to bedtime, keep bedroom dark and cool, no TV or electronics while in bed. Consider melatonin as needed. Consider cognitive behavioral therapy for insomnia (CBT-I). Consider substance cessation therapy as needed - contact office if desiring medication assisted therapy. Manage co-morbid conditions. Continue monitoring symptoms - report persistent or worsening/concerning symptoms to the office or go to the ER. For mental health CRISIS, please reach out to [phone] (National Suicide and Crisis Lifeline), 911, go to the emergency department, or contact the [facility] Crisis Unit/Team. Follow up as scheduled in 4 weeks or sooner if necessary. Follow up with PCP and/or other specialists as advised. NEXT STEP: Consider medication adjustments as needed. 06/21/2024 Tardive dyskinesia (ICD-10 - G24.01) Duration (acute/chronic), stability (controlled/uncontro lled): Chronic problem, mostly well controlled with [place], recent trial of benztropine resulted in falls (medication discontinued) Current medications/efficacy : see above Previous medication trials: Ingrezza, benztropine, [place] Examination as documented - see pertinent aspects of office visit documentation. RECOMMENDATIONS: Continue/modify other medications as prescribed - educated patient/guardian on adverse effects, risks and benefits, as well as alternative treatments Manage co-morbid conditions. Continue monitoring symptoms - report persistent or worsening/concerning symptoms to the office or go to the ER. For mental health CRISIS, please reach out to [phone] ([place] Suicide and Crisis Lifeline), 911, go to the emergency department, or contact the [facility] Crisis Unit/Team. Follow up as scheduled or sooner if necessary. Follow up with PCP and/or other specialists as advised. NEXT STEP: Consider adding trihexiphenidyl as needed. 02/17/2024 Mood disorder (ICD-10 - F39) Continue Seroquel 100mg BID due to improvent in moods. No side effects reported. PHQ-9 is a 2 today. Continue Vistaril for anxiety. Increased Lamotrigine to 100mg once daily. Reviewed purpose (mood stability, reduce depression, and help with irritability), benefits, and risks - including sedation, nausea, rash - benign or serious. A serious rash could cause shedding of all skin and even become fatal. Stop taking medication immediately if a rash occurs and seek emergency care. Notify our office as well. If you ever miss 4 or more consecutive days of taking this medication, please let the office know. The prescriber may need to restart this medication at 25 mg daily and titrate up as tolerated. Antipsychotics education - reviewed side effects which may include metabolic syndrome, movement disorders (EPS/extrapyramidal symptoms & TD/Tardive dyskinesia) - potentially permanent movement abnormalities, NMS/neuroleptic malignant syndrome (high fever, very rigid muscles, and rapid heartbeat - potentially fatal), sedation, and cardiac rhythm abnormalities. 11/03/2024 PTSD (post-traumatic stress disorder) (ICD-10 - F43.10) See assessment and plan for mood disorder 07/12/2024 Primary insomnia (ICD-10 - F51.01) Duration (acute/chronic), stability (controlled/uncontro lled): Chronic, mostly well controlled, improved with current medication regimen Current medications/efficacy : Somewhat Previous medication trials: Trazodone, hydroxyzine, quetiapine, amitriptyline Current/previous therapies: Denies current therapy Examination as documented - see pertinent aspects of office visit documentation. Pertinent diagnostics: LABS COMPLETED IN 04/2024, SEE CHART RECOMMENDATIONS: Continue/modify medications as prescribed - educated patient/guardian on adverse effects, risks and benefits, as well as alternative treatments Practice stress reduction techniques, such as guided imagery, journaling, aromatherapy, acupuncture/acupress ure, deep breathing, etc. Practice healthy sleep hygiene - maintain regular routine, no caffeine after 1PM, no exercise 1-2 hours prior to bedtime, keep bedroom dark and cool, no TV or electronics while in bed. Consider melatonin as needed. Consider cognitive behavioral therapy for insomnia (CBT-I). Consider substance cessation therapy as needed - contact office if desiring medication assisted therapy. Manage co-morbid conditions. Continue monitoring symptoms - report persistent or worsening/concerning symptoms to the office or go to the ER. For mental health CRISIS, please reach out to [phone] ([place] [facility]), 911, go to the emergency department, or contact the [facility] Crisis Unit/Team. Follow up as scheduled in 4 weeks or sooner if necessary. Follow up with PCP and/or other specialists as advised. NEXT STEP: Consider medication adjustments as needed. 09/02/2024 PTSD (post-traumatic stress disorder) (ICD-10 - F43.10) See assessment and plan for bipolar II disorder 05/20/2024 Primary insomnia (ICD-10 - F51.01) 04/19/2024 Tardive dyskinesia (ICD-10 - G24.01) Duration (acute/chronic), stability (controlled/uncontro lled): Chronic problem, benzotropine added 4 weeks ago to [place] to assist further - patient reports improvment in oral movements but reports falls since starting benztropine Current medications/efficacy : see above Previous medication trials: Ingrezza, benstropine, [place] Examination as documented - see pertinent aspects of office visit documentation. RECOMMENDATIONS: STOP benztropine as advised and switch quetiapine to olanzapine - see assessment and plan for bipolar disorder Continue/modify other medications as prescribed - educated patient/guardian on adverse effects, risks and benefits, as well as alternative treatments Manage co-morbid conditions. Continue monitoring symptoms - report persistent or worsening/concerning symptoms to the office or go to the ER. For mental health CRISIS, please reach out to [phone] ([place] [facility]), 911, go to the emergency department, or contact the [facility] Crisis Unit/Team. Follow up as scheduled or sooner if necessary. Follow up with PCP and/or other specialists as advised. NEXT STEP: Consider adding trihexiphenidyl. 05/20/2024 Tardive dyskinesia (ICD-10 - G24.01) Duration (acute/chronic), stability (controlled/uncontro lled): Chronic problem, mostly well controlled with Austedo, recent trial of benztropine resulted in falls (medication discontinued) Current medications/efficacy : see above Previous medication trials: Ingrezza, benztropine, [place] Examination as documented - see pertinent aspects of office visit documentation. RECOMMENDATIONS: Continue/modify other medications as prescribed - educated patient/guardian on adverse effects, risks and benefits, as well as alternative treatments Manage co-morbid conditions. Continue monitoring symptoms - report persistent or worsening/concerning symptoms to the office or go to the ER. For mental health CRISIS, please reach out to [phone] ([place] [facility]), 911, go to the emergency department, or contact the [facility] Crisis Unit/Team. Follow up as scheduled or sooner if necessary. Follow up with PCP and/or other specialists as advised. NEXT STEP: Consider adding trihexiphenidyl as needed. 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 Pertinent diagnostics: LABS COLLECTED IN OFFICE TODAY - AWAITING RESULTS RECOMMENDATIONS: Continue/modify medications as prescribed - educated patient/guardian on adverse effects, risks and benefits, as well as alternative treatments Consider/Continue therapy. Manage co-morbid conditions. Continue monitoring symptoms - report persistent or worsening/concerning symptoms to the office or go to the ER. For mental health CRISIS, please reach out to [phone] ([facility]), 911, go to the emergency department, or contact the [facility] Crisis Unit/Team. Follow up as scheduled or sooner if necessary. Follow up with PCP and/or other specialists as advised. NEXT STEP: UDS and CSA at follow up??? 04/19/2024 Anxiety (ICD-10 - F41.9) Duration (acute/chronic), stability (controlled/uncontro lled): Chronic, mildly uncontrolled based on reported symptoms, see HPI Current medications/efficacy : Somewhat Previous medication trials: [place], Buspar, Zoloft, Seroquel, Lamictal, Effexor, amitriptyline, Gabapentin, Ingrezza, benztropine, olanzapine, clonazepam Current/previous therapies: Denies current therapy Examination as documented - see pertinent aspects of office visit documentation. Pertinent diagnostics: PATIENT AGREEABLE TO LAB COLLECTION AT FOLLOW UP RECOMMENDATIONS: START clonazepam as prescribed - educated patient/guardian on adverse effects, risks and benefits, as well as alternative treatments Continue/modify other medications as prescribed - educated patient/guardian on adverse effects, risks and benefits, as well as alternative treatments Consume well balanced diet, preferably low in saturated fats (solid at room temperature, such as butter, margarine, Crisco, etc) and low in sodium (<2,000mg per day). Consume plenty of fruits/vegetables, healthy grains/whole grains, unsaturated/healthy fats (liquid at room temperature, such as olive oil, sunflower seed oil, canola, vegetable, etc.). Exercise regularly - Develop an exercise routine. 30 minutes of moderate exercise (walking at a brisk pace) 5 times per week is recommended. You should work hard enough to cause a sweat but still be able to talk with others while exercising. Exercise improves overall health - improves blood pressure and blood sugar, helps control weight, reduces stress, and improves mood. Practice stress reduction techniques, such as guided imagery, journaling, aromatherapy, acupuncture/acupress ure, deep breathing, etc. Practice healthy sleep hygiene - maintain regular routine, no caffeine after 1PM, no exercise 1-2 hours prior to bedtime, keep bedroom dark and cool, no TV or electronics while in bed. Consider melatonin as needed. Consider cognitive behavioral therapy for insomnia (CBT-I). Consider/Continue therapy. Consider substance cessation therapy as needed - contact office if desiring medication assisted therapy. Manage co-morbid conditions. Continue monitoring symptoms - report persistent or worsening/concerning symptoms to the office or go to the ER. For mental health CRISIS, please reach out to [phone] ([facility]), 911, go to the emergency department, or contact the [facility] [employer] Crisis Unit/Team. Follow up as scheduled in 4 weeks or sooner if necessary. Follow up with PCP and/or other specialists as advised. NEXT STEP: LABS, UDS and CSA at follow up. 05/20/2024 Tardive dyskinesia (ICD-10 - G24.01) 09/02/2024 Primary insomnia (ICD-10 - F51.01) Duration (acute/chronic), stability (controlled/uncontro lled): Chronic, mostly well controlled, improved with current medication regimen Current medications/efficacy : Somewhat Previous medication trials: Trazodone, hydroxyzine, quetiapine, amitriptyline Current/previous therapies: Denies current therapy Examination as documented - see pertinent aspects of office visit documentation. Pertinent diagnostics: LABS COMPLETED IN 04/2024, SEE CHART RECOMMENDATIONS: Continue/modify medications as prescribed - educated patient/guardian on adverse effects, risks and benefits, as well as alternative treatments Practice stress reduction techniques, such as guided imagery, journaling, aromatherapy, acupuncture/acupress ure, deep breathing, etc. Practice healthy sleep hygiene - maintain regular routine, no caffeine after 1PM, no exercise 1-2 hours prior to bedtime, keep bedroom dark and cool, no TV or electronics while in bed. Consider melatonin as needed. Consider cognitive behavioral therapy for insomnia (CBT-I). Consider substance cessation therapy as needed - contact office if desiring medication assisted therapy. Manage co-morbid conditions. Continue monitoring symptoms - report persistent or worsening/concerning symptoms to the office or go to the ER. For mental health CRISIS, please reach out to [phone] ([facility]), 911, go to the emergency department, or contact the [facility] [employer] Crisis Unit/Team. Follow up as scheduled in 4 weeks or sooner if necessary. Follow up with PCP and/or other specialists as advised. NEXT STEP: Consider medication adjustments as needed. 11/03/2024 Primary insomnia (ICD-10 - F51.01) Duration (acute/chronic), stability (controlled/uncontro lled): Chronic, mostly well controlled, improved with current medication regimen Current medications/efficacy : Somewhat Previous medication trials: Trazodone, hydroxyzine, quetiapine, amitriptyline Current/previous therapies: Denies current therapy Examination as documented - see pertinent aspects of office visit documentation. Pertinent diagnostics: LABS COMPLETED IN 04/2024, SEE CHART DISCUSSION DURING PREVIOUS APPOINTMENT: Provider and patient discussed patient's reported symptoms. Provider wonders if patient symptoms may be more related to uncontrolled anxiety/depression (rather than underlying bipolar disorder) since patient has had such profound improvements with taking medications as currently prescribed - amitriptyline, propranolol, trazodone, clonazepam (only taking 0.5mg at bedtime to help with sleep). Provider discussed adjusting trazodone or amitriptyline to assist further with anxiety/depression - patient prefers adjusting the amitriptyline due to medication being most effective in improving patient's anxiety historically, provider agreeable. Provider also recommends increasing propranolol ER slightly to assist further with anxiety - patient agreeable. RECOMMENDATIONS: CONTINUE amitriptyline as prescribed to assist further with anxiety/depression/s leep, adjusting medication with patient collaboration with the hopes of titrating off of clonazepam in the future - educated patient/guardian on adverse effects, risks and benefits, as well as alternative treatments CONTINUE clonazepam as prescribed, only taking about once weekly currently per patient report - educated patient/guardian on adverse effects, risks and benefits, as well as alternative treatments Continue/modify medications as prescribed - educated patient/guardian on adverse effects, risks and benefits, as well as alternative treatments Practice stress reduction techniques, such as guided imagery, journaling, aromatherapy, acupuncture/acupress ure, deep breathing, etc. Practice healthy sleep hygiene - maintain regular routine, no caffeine after 1PM, no exercise 1-2 hours prior to bedtime, keep bedroom dark and cool, no TV or electronics while in bed. Consider melatonin as needed. Consider cognitive behavioral therapy for insomnia (CBT-I). Consider substance cessation therapy as needed - contact office if desiring medication assisted therapy. Manage co-morbid conditions. Continue monitoring symptoms - report persistent or worsening/concerning symptoms to the office or go to the ER. For mental health CRISIS, please reach out to [phone] ([facility]), 911, go to the emergency department, or contact the [facility] Crisis Unit/Team. Follow up as scheduled in 4 weeks or sooner if necessary. Follow up with PCP and/or other specialists as advised. NEXT STEP: Consider medication adjustments as needed. 07/12/2024 Tardive dyskinesia (ICD-10 - G24.01) Duration (acute/chronic), stability (controlled/uncontro lled): Chronic problem, mostly well controlled with [place] Current medications/efficacy : see above Previous medication trials: Ingrezza, benztropine (falls), [place] Examination as documented - see pertinent aspects of office visit documentation. RECOMMENDATIONS: Continue/modify other medications as prescribed - educated patient/guardian on adverse effects, risks and benefits, as well as alternative treatments Manage co-morbid conditions. Continue monitoring symptoms - report persistent or worsening/concerning symptoms to the office or go to the ER. For mental health CRISIS, please reach out to [phone] ([place] [facility]), 911, go to the emergency department, or contact the [facility] [employer] Crisis Unit/Team. Follow up as scheduled or sooner if necessary. Follow up with PCP and/or other specialists as advised. NEXT STEP: Consider adding trihexiphenidyl as needed. 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 Pertinent diagnostics: LABS COMPLETED IN 04/2024, SEE CHART RECOMMENDATIONS: Continue/modify medications as prescribed - educated patient/guardian on adverse effects, risks and benefits, as well as alternative treatments Consider/Continue therapy. Manage co-morbid conditions. Continue monitoring symptoms - report persistent or worsening/concerning symptoms to the office or go to the ER. For mental health CRISIS, please reach out to [phone] ([place] [facility]), 911, go to the emergency department, or contact the [facility] [employer] Crisis Unit/Team. Follow up as scheduled or sooner if necessary. Follow up with PCP and/or other specialists as advised. NEXT STEP: Consider MAT as needed. 09/30/2024 Tardive dyskinesia (ICD-10 - G24.01) Duration (acute/chronic), stability (controlled/uncontro lled): Chronic problem, mostly well controlled with [place] Current medications/efficacy : see above Previous medication trials: Ingrezza, benztropine (falls), [place] Examination as documented - see pertinent aspects of office visit documentation. RECOMMENDATIONS: Continue/modify other medications as prescribed - educated patient/guardian on adverse effects, risks and benefits, as well as alternative treatments Manage co-morbid conditions. Continue monitoring symptoms - report persistent or worsening/concerning symptoms to the office or go to the ER. For mental health CRISIS, please reach out to [phone] ([place] [facility]), 911, go to the emergency department, or contact the [facility] Crisis Unit/Team. Follow up as scheduled or sooner if necessary. Follow up with PCP and/or other specialists as advised. NEXT STEP: Consider adding trihexiphenidyl as needed. 11/18/2024 Primary insomnia (ICD-10 - F51.01) Duration (acute/chronic), stability (controlled/uncontro lled): Chronic, mostly well controlled, improved with current medication regimen Current medications/efficacy : Somewhat Previous medication trials: Trazodone, hydroxyzine, quetiapine, amitriptyline Current/previous therapies: Denies current therapy Examination as documented - see pertinent aspects of office visit documentation. Pertinent diagnostics: LABS COMPLETED IN 04/2024, SEE CHART DISCUSSION DURING PREVIOUS APPOINTMENT: Provider and patient discussed patient's reported symptoms. Provider wonders if patient symptoms may be more related to uncontrolled anxiety/depression (rather than underlying bipolar disorder) since patient has had such profound improvements with taking medications as currently prescribed - amitriptyline, propranolol, trazodone, clonazepam (only taking 0.5mg at bedtime to help with sleep). Provider discussed adjusting trazodone or amitriptyline to assist further with anxiety/depression - patient prefers adjusting the amitriptyline due to medication being most effective in improving patient's anxiety historically, provider agreeable. Provider also recommends increasing propranolol ER slightly to assist further with anxiety - patient agreeable. RECOMMENDATIONS: Continue/modify medications as prescribed - educated patient/guardian on adverse effects, risks and benefits, as well as alternative treatments Practice stress reduction techniques, such as guided imagery, journaling, aromatherapy, acupuncture/acupress ure, deep breathing, etc. Practice healthy sleep hygiene - maintain regular routine, no caffeine after 1PM, no exercise 1-2 hours prior to bedtime, keep bedroom dark and cool, no TV or electronics while in bed. Consider melatonin as needed. Consider cognitive behavioral therapy for insomnia (CBT-I). Consider substance cessation therapy as needed - contact office if desiring medication assisted therapy. Manage co-morbid conditions. Continue monitoring symptoms - report persistent or worsening/concerning symptoms to the office or go to the ER. For mental health CRISIS, please reach out to [phone] ([place] [facility]), 911, go to the emergency department, or contact the [facility] Crisis Unit/Team. Follow up as scheduled in 4 weeks or sooner if necessary. Follow up with PCP and/or other specialists as advised. NEXT STEP: Consider medication adjustments as needed. 01/05/2025 Primary insomnia (ICD-10 - F51.01) Duration (acute/chronic), stability (controlled/uncontro lled): Chronic, mostly well controlled, improved with current medication regimen Current medications/efficacy : Somewhat Previous medication trials: Trazodone, hydroxyzine, quetiapine, amitriptyline Current/previous therapies: Denies current therapy Examination as documented - see pertinent aspects of office visit documentation. Pertinent diagnostics: LABS COMPLETED IN 04/2024, SEE CHART DISCUSSION DURING PREVIOUS APPOINTMENT: Provider and patient discussed patient's reported symptoms. Provider wonders if patient symptoms may be more related to uncontrolled anxiety/depression (rather than underlying bipolar disorder) since patient has had such profound improvements with taking medications as currently prescribed - amitriptyline, propranolol, trazodone, clonazepam (only taking 0.5mg at bedtime to help with sleep). Provider discussed adjusting trazodone or amitriptyline to assist further with anxiety/depression - patient prefers adjusting the amitriptyline due to medication being most effective in improving patient's anxiety historically, provider agreeable. Provider also recommends increasing propranolol ER slightly to assist further with anxiety - patient agreeable. RECOMMENDATIONS: INCREASE gabapentin as prescribed to assist with anxiety/pain, will hopefully secondarily improve sleep - educated patient/guardian on adverse effects, risks and benefits, as well as alternative treatments Continue/modify other medications as prescribed - educated patient/guardian on adverse effects, risks and benefits, as well as alternative treatments Practice stress reduction techniques, such as guided imagery, journaling, aromatherapy, acupuncture/acupress ure, deep breathing, etc. Practice healthy sleep hygiene - maintain regular routine, no caffeine after 1PM, no exercise 1-2 hours prior to bedtime, keep bedroom dark and cool, no TV or electronics while in bed. Consider melatonin as needed. Consider cognitive behavioral therapy for insomnia (CBT-I). Consider substance cessation therapy as needed - contact office if desiring medication assisted therapy. Manage co-morbid conditions. Continue monitoring symptoms - report persistent or worsening/concerning symptoms to the office or go to the ER. For mental health CRISIS, please reach out to [phone] ([place] [facility]), 911, go to the emergency department, or contact the [facility] Crisis Unit/Team. Follow up as scheduled in 4 weeks or sooner if necessary. Follow up with PCP and/or other specialists as advised. NEXT STEP: Consider medication adjustments as needed. 12/15/2024 Primary insomnia (ICD-10 - F51.01) Duration (acute/chronic), stability (controlled/uncontro lled): Chronic, mostly well controlled, improved with current medication regimen Current medications/efficacy : Somewhat Previous medication trials: Trazodone, hydroxyzine, quetiapine, amitriptyline Current/previous therapies: Denies current therapy Examination as documented - see pertinent aspects of office visit documentation. Pertinent diagnostics: LABS COMPLETED IN 04/2024, SEE CHART DISCUSSION DURING PREVIOUS APPOINTMENT: Provider and patient discussed patient's reported symptoms. Provider wonders if patient symptoms may be more related to uncontrolled anxiety/depression (rather than underlying bipolar disorder) since patient has had such profound improvements with taking medications as currently prescribed - amitriptyline, propranolol, trazodone, clonazepam (only taking 0.5mg at bedtime to help with sleep). Provider discussed adjusting trazodone or amitriptyline to assist further with anxiety/depression - patient prefers adjusting the amitriptyline due to medication being most effective in improving patient's anxiety historically, provider agreeable. Provider also recommends increasing propranolol ER slightly to assist further with anxiety - patient agreeable. RECOMMENDATIONS: INCREASE gabapentin as prescribed to assist with anxiety/pain, will hopefully secondarily improve sleep - educated patient/guardian on adverse effects, risks and benefits, as well as alternative treatments Continue/modify other medications as prescribed - educated patient/guardian on adverse effects, risks and benefits, as well as alternative treatments Practice stress reduction techniques, such as guided imagery, journaling, aromatherapy, acupuncture/acupress ure, deep breathing, etc. Practice healthy sleep hygiene - maintain regular routine, no caffeine after 1PM, no exercise 1-2 hours prior to bedtime, keep bedroom dark and cool, no TV or electronics while in bed. Consider melatonin as needed. Consider cognitive behavioral therapy for insomnia (CBT-I). Consider substance cessation therapy as needed - contact office if desiring medication assisted therapy. Manage co-morbid conditions. Continue monitoring symptoms - report persistent or worsening/concerning symptoms to the office or go to the ER. For mental health CRISIS, please reach out to [phone] ([place] [facility]), 911, go to the emergency department, or contact the [facility] Crisis Unit/Team. Follow up as scheduled in 4 weeks or sooner if necessary. Follow up with PCP and/or other specialists as advised. NEXT STEP: Consider medication adjustments as needed. 02/02/2025 PTSD (post-traumatic stress disorder) (ICD-10 - F43.10) See assessment and plan for mood disorder 02/02/2025 Primary insomnia (ICD-10 - F51.01) Duration (acute/chronic), stability (controlled/uncontro lled): Chronic, mostly well controlled, improved with current medication regimen Current medications/efficacy : Somewhat Previous medication trials: Trazodone, hydroxyzine, quetiapine, amitriptyline Current/previous therapies: Denies current therapy Examination as documented - see pertinent aspects of office visit documentation. Pertinent diagnostics: LABS COMPLETED IN 04/2024, SEE CHART DISCUSSION DURING PREVIOUS APPOINTMENT: Provider and patient discussed patient's reported symptoms. Provider wonders if patient symptoms may be more related to uncontrolled anxiety/depression (rather than underlying bipolar disorder) since patient has had such profound improvements with taking medications as currently prescribed - amitriptyline, propranolol, trazodone, clonazepam (only taking 0.5mg at bedtime to help with sleep). Provider discussed adjusting trazodone or amitriptyline to assist further with anxiety/depression - patient prefers adjusting the amitriptyline due to medication being most effective in improving patient's anxiety historically, provider agreeable. Provider also recommends increasing propranolol ER slightly to assist further with anxiety - patient agreeable. RECOMMENDATIONS: Continue gabapentin as prescribed to assist with anxiety/pain, will hopefully secondarily improve sleep - educated patient/guardian on adverse effects, risks and benefits, as well as alternative treatments Continue/modify other medications as prescribed - educated patient/guardian on adverse effects, risks and benefits, as well as alternative treatments Practice stress reduction techniques, such as guided imagery, journaling, aromatherapy, acupuncture/acupress ure, deep breathing, etc. Practice healthy sleep hygiene - maintain regular routine, no caffeine after 1PM, no exercise 1-2 hours prior to bedtime, keep bedroom dark and cool, no TV or electronics while in bed. Consider melatonin as needed. Consider cognitive behavioral therapy for insomnia (CBT-I). Consider substance cessation therapy as needed - contact office if desiring medication assisted therapy. Manage co-morbid conditions. Continue monitoring symptoms - report persistent or worsening/concerning symptoms to the office or go to the ER. For mental health CRISIS, please reach out to [phone] ([place] [facility]), 911, go to the emergency department, or contact the [facility] [employer] Crisis Unit/Team. Follow up as scheduled in 4 weeks or sooner if necessary. Follow up with PCP and/or other specialists as advised. NEXT STEP: Consider medication adjustments as needed. 01/05/2025 Tardive dyskinesia (ICD-10 - G24.01) Duration (acute/chronic), stability (controlled/uncontro lled): Chronic problem, mostly well controlled with Austedo Current medications/efficacy : see above Previous medication trials: Ingrezza, benztropine (falls), Austedo Examination as documented - see pertinent aspects of office visit documentation. RECOMMENDATIONS: Continue/modify other medications as prescribed - educated patient/guardian on adverse effects, risks and benefits, as well as alternative treatments Manage co-morbid conditions. Continue monitoring symptoms - report persistent or worsening/concerning symptoms to the office or go to the ER. For mental health CRISIS, please reach out to [phone] ([place] [facility]), 911, go to the emergency department, or contact the [facility] [employer] Crisis Unit/Team. Follow up as scheduled or sooner if necessary. Follow up with PCP and/or other specialists as advised. NEXT STEP: Consider adding trihexiphenidyl as needed. 12/15/2024 Tardive dyskinesia (ICD-10 - G24.01) Duration (acute/chronic), stability (controlled/uncontro lled): Chronic problem, mostly well controlled with Austedo Current medications/efficacy : see above Previous medication trials: Ingrezza, benztropine (falls), Austedo Examination as documented - see pertinent aspects of office visit documentation. RECOMMENDATIONS: Continue/modify other medications as prescribed - educated patient/guardian on adverse effects, risks and benefits, as well as alternative treatments Manage co-morbid conditions. Continue monitoring symptoms - report persistent or worsening/concerning symptoms to the office or go to the ER. For mental health CRISIS, please reach out to [phone] ([place] [facility]), 911, go to the emergency department, or contact the [facility] Crisis Unit/Team. Follow up as scheduled or sooner if necessary. Follow up with PCP and/or other specialists as advised. NEXT STEP: Consider adding trihexiphenidyl as needed. 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 Pertinent diagnostics: LABS COMPLETED IN 04/2024, SEE CHART RECOMMENDATIONS: Continue/modify medications as prescribed - educated patient/guardian on adverse effects, risks and benefits, as well as alternative treatments Consider/Continue therapy. Manage co-morbid conditions. Continue monitoring symptoms - report persistent or worsening/concerning symptoms to the office or go to the ER. For mental health CRISIS, please reach out to [phone] ([place] [facility]), 911, go to the emergency department, or contact the [facility] Crisis Unit/Team. Follow up as scheduled or sooner if necessary. Follow up with PCP and/or other specialists as advised. NEXT STEP: Consider MAT as needed. 11/18/2024 Tardive dyskinesia (ICD-10 - G24.01) Duration (acute/chronic), stability (controlled/uncontro lled): Chronic problem, mostly well controlled with Austedo Current medications/efficacy : see above Previous medication trials: Ingrezza, benztropine (falls), [place]edo Examination as documented - see pertinent aspects of office visit documentation. RECOMMENDATIONS: Continue/modify other medications as prescribed - educated patient/guardian on adverse effects, risks and benefits, as well as alternative treatments Manage co-morbid conditions. Continue monitoring symptoms - report persistent or worsening/concerning symptoms to the office or go to the ER. For mental health CRISIS, please reach out to [phone] ([place] [facility]), 911, go to the emergency department, or contact the [facility] Crisis Unit/Team. Follow up as scheduled or sooner if necessary. Follow up with PCP and/or other specialists as advised. NEXT STEP: Consider adding trihexiphenidyl as needed. 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 Pertinent diagnostics: LABS COMPLETED IN 04/2024, SEE CHART RECOMMENDATIONS: Continue/modify medications as prescribed - educated patient/guardian on adverse effects, risks and benefits, as well as alternative treatments Consider/Continue therapy. Manage co-morbid conditions. Continue monitoring symptoms - report persistent or worsening/concerning symptoms to the office or go to the ER. For mental health CRISIS, please reach out to [phone] ([place] [facility]), 911, go to the emergency department, or contact the [facility] Crisis Unit/Team. Follow up as scheduled or sooner if necessary. Follow up with PCP and/or other specialists as advised. NEXT STEP: Consider MAT as needed. 11/03/2024 Tardive dyskinesia (ICD-10 - G24.01) Duration (acute/chronic), stability (controlled/uncontro lled): Chronic problem, mostly well controlled with Austedo Current medications/efficacy : see above Previous medication trials: Ingrezza, benztropine (falls), [place]edo Examination as documented - see pertinent aspects of office visit documentation. RECOMMENDATIONS: Continue/modify other medications as prescribed - educated patient/guardian on adverse effects, risks and benefits, as well as alternative treatments Manage co-morbid conditions. Continue monitoring symptoms - report persistent or worsening/concerning symptoms to the office or go to the ER. For mental health CRISIS, please reach out to [phone] ([place] [facility]), 911, go to the emergency department, or contact the [facility] Crisis Unit/Team. Follow up as scheduled or sooner if necessary. Follow up with PCP and/or other specialists as advised. NEXT STEP: Consider adding trihexiphenidyl as needed. 09/02/2024 Tardive dyskinesia (ICD-10 - G24.01) Duration (acute/chronic), stability (controlled/uncontro lled): Chronic problem, mostly well controlled with Austedo Current medications/efficacy : see above Previous medication trials: Ingrezza, benztropine (falls), Austedo Examination as documented - see pertinent aspects of office visit documentation. RECOMMENDATIONS: Continue/modify other medications as prescribed - educated patient/guardian on adverse effects, risks and benefits, as well as alternative treatments Manage co-morbid conditions. Continue monitoring symptoms - report persistent or worsening/concerning symptoms to the office or go to the ER. For mental health CRISIS, please reach out to [phone] ([place] [facility]), 911, go to the emergency department, or contact the [facility] Crisis Unit/Team. Follow up as scheduled or sooner if necessary. Follow up with PCP and/or other specialists as advised. NEXT STEP: Consider adding trihexiphenidyl as needed. 05/20/2024 Methamphetamine abuse in remission (ICD-10 - F15.11) 05/20/2024 Encounter for immunization (ICD-10 - Z23) Ordered per standing orders for administering influenza vaccine to adults. Ordered per standing orders for administering influenza vaccine to adults. 03/23/2024 Methamphetamine abuse in remission (ICD-10 - F15.11) Pt denies need for MAT services at this time. 03/23/2024 Bipolar 2 disorder (ICD-10 - F31.81) Continue Seroquel Increase Lamotrigine. DC if rash. Reviewed purpose (mood stability, reduce depression, and help with irritability), benefits, and risks - including sedation, nausea, rash - benign or serious. A serious rash could cause shedding of all skin and even become fatal. Stop taking medication immediately if a rash occurs and seek emergency care. Notify our office as well. If you ever miss 4 or more consecutive days of taking this medication, please let the office know. The prescriber may need to restart this medication at 25 mg daily and titrate up as tolerated. Antipsychotics education - reviewed side effects which may include metabolic syndrome, movement disorders (EPS/extrapyramidal symptoms & TD/Tardive dyskinesia) - potentially permanent movement abnormalities, NMS/neuroleptic malignant syndrome (high fever, very rigid muscles, and rapid heartbeat - potentially fatal), sedation, and cardiac rhythm abnormalities. 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 Pertinent diagnostics: LABS COMPLETED IN 04/2024, SEE CHART RECOMMENDATIONS: Continue/modify medications as prescribed - educated patient/guardian on adverse effects, risks and benefits, as well as alternative treatments Consider/Continue therapy. Manage co-morbid conditions. Continue monitoring symptoms - report persistent or worsening/concerning symptoms to the office or go to the ER. For mental health CRISIS, please reach out to [phone] ([place] [facility]), 911, go to the emergency department, or contact the [facility] [employer] Crisis Unit/Team. Follow up as scheduled or sooner if necessary. Follow up with PCP and/or other specialists as advised. NEXT STEP: Consider MAT as needed. 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 Pertinent diagnostics: LABS COMPLETED IN 04/2024, SEE CHART RECOMMENDATIONS: Continue/modify medications as prescribed - educated patient/guardian on adverse effects, risks and benefits, as well as alternative treatments Consider/Continue therapy. Manage co-morbid conditions. Continue monitoring symptoms - report persistent or worsening/concerning symptoms to the office or go to the ER. For mental health CRISIS, please reach out to [phone] ([place] [facility]), 911, go to the emergency department, or contact the [facility] [employer] Crisis Unit/Team. Follow up as scheduled or sooner if necessary. Follow up with PCP and/or other specialists as advised. NEXT STEP: Consider MAT as needed. 07/12/2024 Nutritional counseling (ICD-10 - Z71.3) 02/17/2024 Methamphetamine abuse in remission (ICD-10 - F15.11) Pt denies need for MAT services at this time. 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 Pertinent diagnostics: LABS COMPLETED IN 04/2024, SEE CHART RECOMMENDATIONS: Continue/modify medications as prescribed - educated patient/guardian on adverse effects, risks and benefits, as well as alternative treatments Consider/Continue therapy. Manage co-morbid conditions. Continue monitoring symptoms - report persistent or worsening/concerning symptoms to the office or go to the ER. For mental health CRISIS, please reach out to [phone] ([place] [facility]), 911, go to the emergency department, or contact the [facility] [employer] Crisis Unit/Team. Follow up as scheduled or sooner if necessary. Follow up with PCP and/or other specialists as advised. NEXT STEP: Consider MAT as needed. 09/30/2024 Nutritional counseling (ICD-10 - Z71.3) 06/21/2024 Nutritional counseling (ICD-10 - Z71.3) 12/15/2024 Methamphetamine abuse in remission (ICD-10 - F15.11) Duration (acute/chronic), stability (controlled/uncontro lled): Chronic, without substance for years Examination as documented - see pertinent aspects of office visit documentation. Pertinent diagnostics: LABS COMPLETED IN 04/2024, SEE CHART RECOMMENDATIONS: Continue/modify medications as prescribed - educated patient/guardian on adverse effects, risks and benefits, as well as alternative treatments Consider/Continue therapy. Manage co-morbid conditions. Continue monitoring symptoms - report persistent or worsening/concerning symptoms to the office or go to the ER. For mental health CRISIS, please reach out to [phone] ([place] [facility]), 911, go to the emergency department, or contact the [facility] [employer] Crisis Unit/Team. Follow up as scheduled or sooner if necessary. Follow up with PCP and/or other specialists as advised. NEXT STEP: Consider MAT as needed. 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 Pertinent diagnostics: LABS COMPLETED IN 04/2024, SEE CHART RECOMMENDATIONS: Continue/modify medications as prescribed - educated patient/guardian on adverse effects, risks and benefits, as well as alternative treatments Consider/Continue therapy. Manage co-morbid conditions. Continue monitoring symptoms - report persistent or worsening/concerning symptoms to the office or go to the ER. For mental health CRISIS, please reach out to [phone] ([place] [facility]), 911, go to the emergency department, or contact the [facility] Crisis Unit/Team. Follow up as scheduled or sooner if necessary. Follow up with PCP and/or other specialists as advised. NEXT STEP: Consider MAT as needed. 02/02/2025 Tardive dyskinesia (ICD-10 - G24.01) Duration (acute/chronic), stability (controlled/uncontro lled): Chronic problem, mostly well controlled with Austedo Current medications/efficacy : see above Previous medication trials: Ingrezza, benztropine (falls), Austedo Examination as documented - see pertinent aspects of office visit documentation. RECOMMENDATIONS: Continue/modify other medications as prescribed - educated patient/guardian on adverse effects, risks and benefits, as well as alternative treatments Manage co-morbid conditions. Continue monitoring symptoms - report persistent or worsening/concerning symptoms to the office or go to the ER. For mental health CRISIS, please reach out to [phone] ([place] [facility]), 911, go to the emergency department, or contact the [facility] Crisis Unit/Team. Follow up as scheduled or sooner if necessary. Follow up with PCP and/or other specialists as advised. NEXT STEP: Consider adding trihexiphenidyl as needed. 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 Pertinent diagnostics: LABS COMPLETED IN 04/2024, SEE CHART RECOMMENDATIONS: Continue/modify medications as prescribed - educated patient/guardian on adverse effects, risks and benefits, as well as alternative treatments Consider/Continue therapy. Manage co-morbid conditions. Continue monitoring symptoms - report persistent or worsening/concerning symptoms to the office or go to the ER. For mental health CRISIS, please reach out to [phone] ([facility]), 911, go to the emergency department, or contact the [facility] Crisis Unit/Team. Follow up as scheduled or sooner if necessary. Follow up with PCP and/or other specialists as advised. NEXT STEP: Consider MAT as needed. 01/05/2025 Nutritional counseling (ICD-10 - Z71.3) 12/15/2024 Nutritional counseling (ICD-10 - Z71.3) 11/18/2024 Nutritional counseling (ICD-10 - Z71.3) 11/03/2024 Nutritional counseling (ICD-10 - Z71.3) 09/02/2024 Nutritional counseling (ICD-10 - Z71.3) 11/03/2024 Over weight (ICD-10 - E66.3) 11/18/2024 Over weight (ICD-10 - E66.3) 12/15/2024 Over weight (ICD-10 - E66.3) 01/05/2025 Over weight (ICD-10 - E66.3) 02/02/2025 Nutritional counseling (ICD-10 - Z71.3) 02/17/2024 Other Patient was edu cated on diagnosis and symptoms. Discussed the treatment plan, patient is agreeable and accepting of treatment plan. Patient denies further questions or concerns currently. Discussed sleep hygiene and caffeine intake. Encouraged to improve diet, get regular exercise, daily relaxation, and work on managing stress levels.Return to clinic 4 weeks.Labs are up to date, 12/2023.Encouraged counseling.The Patient/Guardian is aware of the need to contact the office or return for an earlier appointment if any problems or concerns arise. May also contact the 24-hour crisis hotline (R), refer to the closest emergency room or call 911 if new symptoms arise of existing symptoms worsen; the Patient/Guardian is aware that this would apply to symptoms such as: suicidal ideation, homicidal ideation, high risk behaviors, manic symptoms, psychotic symptoms, physical symptoms, or any other symptoms that may be dangerous to self or others.Greater than 50% of time spent on coordination and counseling where psychopharmacology as well as psychotherapeutic interventions were discussed along with review of treatments in the past.Patient/Reji n was educated about treatments including benefits and risks, alternatives, potential medication side effects, black box warning, and risks of failure if not treated. The Patient/Guardian asked appropriate questions, appeared to understand the answers, and decided to accept the treatment and continue being followed.Discussed the importance of compliance with medications due to the risk of relapse of symptoms.Discussed the risks of taking psychotropic medication when combined with substance use/abuse and/or drinking alcohol. 03/23/2024 Other Patient was edu cated on diagnosis and symptoms. Discussed the treatment plan, patient is agreeable and accepting of treatment plan. Patient denies further questions or concerns currently. Discussed sleep hygiene and caffeine intake. Encouraged to improve diet, get regular exercise, daily relaxation, and work on managing stress levels.Return to clinic 4 weeks.Labs are up to date.Encouraged counseling.The Patient/Guardian is aware of the need to contact the office or return for an earlier appointment if any problems or concerns arise. May also contact the 24-hour crisis hotline ([facility]), refer to the closest emergency room or call 911 if new symptoms arise of existing symptoms worsen; the Patient/Guardian is aware that this would apply to symptoms such as: suicidal ideation, homicidal ideation, high risk behaviors, manic symptoms, psychotic symptoms, physical symptoms, or any other symptoms that may be dangerous to self or others.Greater than 50% of time spent on coordination and counseling where psychopharmacology as well as psychotherapeutic interventions were discussed along with review of treatments in the past.Patient/Reji n was educated about treatments including benefits and risks, alternatives, potential medication side effects, black box warning, and risks of failure if not treated. The Patient/Guardian asked appropriate questions, appeared to understand the answers, and decided to accept the treatment and continue being followed.Discussed the importance of compliance with medications due to the risk of relapse of symptoms.Discussed the risks of taking psychotropic medication when combined with substance use/abuse and/or drinking alcohol. Plan Of Treatment Pending Test Test Name Order Date Ultrasound : Thyroid Sonography B-Scan 0 02/04/2018 Future Test Test Name Order Date Mammogram Breast - Bilateral Screening 0 03/30/2024 Insurance Providers Payer Name Payer Address Payer Phone Subscriber Number Group Number Insured Name Patient Relationship to Insured Coverage Start Date Coverage End Date [employer] MED[employer]ARE ADV [address] [address] [place] [phone] [id number] Nroy Cuevas Self - patient is the insured 4 4 [employer] [address] [address] [place] [phone] [id number] Nory Cuevas Self - patient is the insured 5 [facility] [address] [place] [address] [id number] Nory Cuevas Self - patient is the insured 5 [employer] MED[employer]ARE ADV [address] [address] [place] , [place] [phone] [id number] Nory Cuevas Self - patient is the insured 3 3 MEDICARE PART A [address] [place] [address] [id number] Nory Cuevas Self - patient is the insured 6 6 [employer] [address] [address] [place] [phone] [id number] Nory Cuevas Self - patient is the insured 3 4 Medications Administered Medication Instructions Date of Administration Dosage Notes Ketorolac 03/02/2018 30 mg [facility], pt tolerated well. Medical (General) History Medical History History ICD Code bipolar disorder anxiety depression restless legs chronic back pain migraines Insomnia Diabetes Surgical History Surgery Date(Month/Year) left breast biopsy skin biopsy to face bone spur removal to left and right foot TOTAL HYSTERECTOMY rotator cuff left 01/2020 Hospitalization History Reason Date(Month/Year)
[2025-02-11 12:32] VITALS: BP 150/85; PULSE 93; RESP 16; TEMP 36.5; O2SAT 98
[2025-02-11 12:53] LABS: BEDSIDEPREGUCG Negative (Negative)
[2025-02-11 13:06] LABS: Add Urine Microscopic? YES; Appearance Urine Cloudy (Clear); Glucose Urine UA Negative (Negative); Leukocyte Esterase Ur 3+ LEU/UL (Negative); Need Manual Microscopic Reviewed; Nitrate Urine Negative (Negative); Non Pathogenic Casts 0-2; Specific Grav Ur 1.006 (1.001-1.035)
[2025-02-11 14:15] VITALS: BP 130/74; PULSE 82; RESP 19; O2SAT 95
--- NOTE | 2025-02-11 14:23 | ED_ITS ---
HPI - Abdominal Pain General Chief Complaint: Abdominal Pain Stated Complaint: bowel incontinence, abd pain Time Seen by Provider: 02/11/25 14:05 Source: patient and RN notes reviewed Mode of arrival: ambulatory Limitations: no limitations History of Present Illness HPI narrative: 59 y/o WF in the ED for c/o cough, slight SOB, body aches, chills, abd pain, and diarrhea X2 days. Pt denies fevers, dysuria, hematuria, N/V, bloody stools and CP. Pt denies any sick contacts or anyone sick recently. Pt states she coughs so hard, she messes on her self. Pt denies outright diarrhea when not coughing. Pt endorses pain to her lower abd, worse w/ palpation. Pt denies taking any OTC treatments for any of her symptoms. Related Data Home Medications ?Medication ?Instructions ?Recorded ?Confirmed ?Last Taken ?Type amitriptyline 100 mg tablet 100 mg PO HS 07/25/24 07/25/24 07/23/24 History deutetrabenazine 12 mg tablet 24 mg PO BID 07/25/24 07/25/24 07/23/24 History ([place]) hydroxyzine HCl 50 mg tablet 50 mg PO TID 07/25/24 07/25/24 07/23/24 History lamotrigine 100 mg tablet 200 mg PO .every morning 07/25/24 07/25/24 07/23/24 History olanzapine 15 mg tablet 15 mg PO DAILY 07/25/24 07/25/24 07/23/24 History prazosin 1 mg capsule 1 mg PO .nightly 07/25/24 07/25/24 07/23/24 History propranolol 20 mg tablet 20 mg PO Q12H 07/25/24 07/25/24 07/23/24 History trazodone 100 mg tablet 100 mg PO .every night 07/25/24 07/25/24 07/23/24 History Allergies Allergy/AdvReac Type Severity Reaction Status Date / Time Penicillins Allergy Unknown Rash Verified 02/11/25 12:34 Review of Systems 2 Review of Systems: All systems reviewed & are unremarkable except as noted in HPI and below PMFSH Past Medical History Medical History Depression Tardive dyskinesia Bipolar disorder Surgical History Surgical History History of section History of hysterectomy History of tonsillectomy Family History Family History Father Depression Hypertension Asthma Family history of alcoholism Mother Family history of malignant neoplasm Other Family history of mental disorder Social History Social History Social History: Surrogate medical decision maker: Son Code status: Full code. Smoking status: Former smoker Tobacco type: cigarettes Second hand tobacco smoke exposure: No Smoking end date: 08/27/23 Alcohol intake: current Substance use: current Substance use type: marijuana Do You Feel Safe in your Home?: Yes Lack of Transportation: No Lack of Food: Never True Current Housing: I Have Housing Concerned About Future Housing: No Difficulty Paying Gas/Electric Bills: No Difficulty Paying for Meds: No Currently Unemployed: No Education: High School Diploma/GED Difficulty w/ Childcare or Family Care: No Spiritual care concerns: No Exam 2 Narrative: GENERAL: Well-appearing, well-nourished, and in no acute distress. HEAD: Normocephalic, atraumatic. EYES: PERRLA and EOMI. ENT: Nares clear, no rhinorrhea or epistaxis. Mucous membranes moist. NECK: Supple. CHEST: Clear to auscultation. No respiratory distress. HEART: Regular rate and rhythm. No murmur heard. Normal peripheral pulses. ABDOMEN: Soft, tender to RLQ and LLQ on palpation, no rebound tenderness or masses noted, nondistended, normal active bowel sounds. BACK: CVA tenderness bilateral EXTREMITIES: Normal range of motion. No edema. SKIN: Warm, dry, no rash. NEURO: No focal deficits. Alert and oriented x3. PSYCH: Normal mood and affect. : General: Yes bladder normal to palpation Course Vital Signs Vital signs: Vital Signs Temperature 36.5 C 02/11/25 12:32 Pulse Rate 93 02/11/25 12:32 Respiratory Rate 16 02/11/25 12:32 Blood Pressure 150/85 H 02/11/25 12:32 Pulse Oximetry 98 02/11/25 12:32 Oxygen Delivery Room Air 02/11/25 12:32 Temperature 36.5 C 02/11/25 12:32 Pulse Rate 76 02/11/25 15:00 Respiratory Rate 14 02/11/25 15:00 Blood Pressure 132/76 02/11/25 15:00 Pulse Oximetry 97 02/11/25 15:00 Oxygen Delivery Room Air 02/11/25 12:32 MDM - Abdominal Pain MDM Narrative Medical decision making narrative: UA with reflex and urine obtained via protocol. CBC, CMP, lactic all unremarkable. CT and x-ray normal per radiology read. Will release patient with with treatment for UTI and probable gastroenteritis. Differential Diagnosis Differential diagnosis: Likely abdominal pain, acute appendicitis, calculus of kidney, constipation, diverticulitis, endometriosis, gastroenteritis and small bowel obstruction Medical Records Attestation: I reviewed the patient's medical records. Lab Data Attestation: I reviewed the patient's lab results. 02/11/25 15:05 02/11/25 15:05 Labs: Lab Results 02/11/25 02/11/25 02/11/25 Range/Units 12:48 12:50 15:05 WBC 7.2 (4.5-10.0) K/mm3 RBC 4.75 (4.2-5.4) M/mm3 Hgb 13.6 (12.0-15.0) g/dL Hct 42.3 (37.0-47.0) % MCV 89.1 (80-100) fl MCH 28.6 (26-34) pg MCHC 32.2 (32-36) g/dl RDW 13.2 (11.5-14.5) % Plt Count 379 H (150-375) k/mm3 MPV 9.7 (7.4-10.4) fl Immature Gran % (Auto) 1.8 H (0-0.5) % Neut % (Auto) 63.4 (45.5-73.1) % Lymph % (Auto) 27.8 (18.3-44.2) % [place] % (Auto) 5.4 (2.6-8.5) % Eos % (Auto) 1.0 (0-4.4) % Baso % (Auto) 0.6 (0.2-1.2) % Lymph # (Auto) 2.00 (0.9-3.2) K/mm3 [place] # (Auto) 0.4 (0.1-0.6) K/mm3 Eos # (Auto) 0.1 (0-0.3) K/mm3 Baso # (Auto) 0.0 (0.0-0.1) K/mm3 Abs Immat Gran (auto) 0.13 H (0.00-0.031) K/mm3 Absolute Neuts (auto) 4.6 (1.3-6.7) K/mm3 Absolute Nucleated RBC 0.000 (0.0-0.012) K/mm3 Nucleated RBC % 0.0 (0.0-0.2) % Sodium 137 (137-145) mmol/L Potassium 4.1 (3.4-5.0) mmol/L Chloride 105 (98-107) mmol/L Carbon Dioxide 25 (22-30) mmol/L Anion Gap 7 (4-12) mmol/L BUN 7 D (7-17) mg/dL Creatinine 0.81 (0.7-1.0) mg/dL Estim Creat Clear Calc 72 ml/min Estimated GFR > 60 (59 - ) Glucose 87 (65-110) mg/dL Lactic Acid 0.7 (0.7-2.0) mmol/L Calcium 9.5 (8.4-10.2) mg/dL Total Bilirubin 0.4 (0.2-1.3) mg/dL AST 19 (14-36) U/L ALT 19 (6-35) U/L Alkaline Phosphatase 98 (38-126) U/L Total Protein 7.4 (6.3-8.2) g/dL Albumin 4.1 (3.5-5.1) g/dL Urine Color Yellow (Yellow) Urine Appearance Cloudy H (Clear) Urine pH 7.5 (5.0-9.0) Ur Specific [place] 1.006 (1.001-1.035) Urine Protein Negative (Negative) mg/dL Urine Glucose (UA) Negative (Negative) mg/dL Urine Ketones Negative (Negative) mg/dL Ur Blood (Man) 1+ H (Negative) Urine Nitrate Negative (Negative) Urine Bilirubin Negative (Negative) Urine Urobilinogen 0.2 (<2.0) mg/dL Add Ur Microanalysis Reviewed Leukocyte Esterase Rfl 3+ H (Negative) BREANA/UL Urine RBC 11-20 H (0-2) /hpf Urine WBC 51-100 H (0-3) /hpf Ur Squamous Epith Cells Few (Few) /hpf Urine Bacteria 3+ H /hpf Urine Casts 0-2 POC Urine HCG, Qual Negative (Negative) Imaging Data Radiologist's impression: ITS Impressions Abdomen/Pelvis CT 02/11/25 14:38 Impression: No significant abnormality seen. Chest X-Ray 02/11/25 14:47 Impression: Normal chest. ITS Impressions Abdomen/Pelvis CT 02/11/25 14:38 Impression: No significant abnormality seen. Chest X-Ray 02/11/25 14:47 Impression: Normal chest. Discharge Plan Discharge Clinical Impression: Gastroenteritis UTI (urinary tract infection) Qualifiers: Urinary tract infection type: site unspecified Hematuria presence: without hematuria Qualified Code(s): N39.0 - Urinary tract infection, site not specified Patient Disposition: Home Condition: Stable Instructions: Antibiotic Form, Urinary Tract Infection in Women (ED), Gastroenteritis (ED) Additional Instructions: Recommend bland/brat diet for the next few days. Increased fluid levels, recommend drinking after body weight in oz. take antibiotics until completion. Can take Tylenol or Motrin [id number] for pain. Follow up with the primary care provider as scheduled. Return to the ED if worsening of symptoms. Patient Language: Gabonese Prescriptions: New nitrofurantoin monohyd/m-cryst [Macrobid] 100 mg capsule 100 mg PO Q12H 5 Days Qty: 10 0RF Rx Instructions: must administer with a meal/food No Action amitriptyline 100 mg tablet 100 mg PO HS [place] 12 mg tablet 24 mg PO BID hydroxyzine HCl 50 mg tablet 50 mg PO TID propranolol 20 mg tablet 20 mg PO Q12H lamotrigine 100 mg tablet 200 mg PO .every morning Patient Comments: 2 100mg tabs every morning and 0.5 100mg tablet nightly trazodone 100 mg tablet 100 mg PO .every night prazosin 1 mg capsule 1 mg PO .nightly olanzapine 15 mg tablet 15 mg PO DAILY levofloxacin 500 mg tablet 500 mg PO DAILY 3 Days Qty: 3 0RF Follow-up/Referrals: [facility] [Primary Care Provider] - 1 Week UNKNOWN,DOCTOR [Non-Staff] -
[2025-02-11 15:00] VITALS: BP 132/76; PULSE 76; RESP 14; O2SAT 97
[2025-02-11 15:17] LABS: Hematocrit 42.3 % (37.0-47.0); Hemoglobin 13.6 g/dL (12.0-15.0); Immature Granulocyte Percent A 1.8 % (0-0.5); Lymphocytes Absolute Auto 2.00 K/mm3 (0.9-3.2); Mean Corpuscular HGB Conc 32.2 g/dl (32-36); Mean Corpuscular Hemoglobin 28.6 pg (26-34); Mean Corpuscular Volume 89.1 fl (80-100); Nucleated Red Blood Cells Absolute Auto 0.000 K/mm3 (0.0-0.012); Nucleated Red Blood Cells Perc 0.0 % (0.0-0.2); Platelet Count Result 379 k/mm3 (150-375); Red Blood Count 4.75 M/mm3 (4.2-5.4); White Blood Count 7.2 K/mm3 (4.5-10.0)
[2025-02-11 15:24] LABS: Alanine Aminotransferase 19 U/L (6-35); Albumin Level 4.1 g/dL (3.5-5.1); Alkaline Phosphatase 98 U/L (38-126); Anion Gap 7 mmol/L (4-12); Aspartate Amino Transferase 19 U/L (14-36); Bilirubin,Total 0.4 mg/dL (0.2-1.3); Blood Urea Nitrogen 7 mg/dL (7-17); Calcium 9.5 mg/dL (8.4-10.2); Carbon Dioxide 25 mmol/L (22-30); Chloride 105 mmol/L (98-107); Estimated CRCL calculation 72 ml/min; Estimated Glomerular Filt Rate > 60; Glucose 87 mg/dL (65-110); Potassium 4.1 mmol/L (3.4-5.0); Sodium 137 mmol/L (137-145); Total Protein 7.4 g/dL (6.3-8.2)
[2025-02-11 16:15] VITALS: BP 130/74; PULSE 76; RESP 16; O2SAT 97
== END 2025-02-11 16:15 | disposition home or self-care (01) ==
PROVIDERS: Emergency Medicine; Emergency Provider Registered Nurse Emergency
DX: K52.9 Noninfective gastroenteritis and colitis, unspecified (principal); N39.0 Urinary tract infection, site not specified; G24.01 Drug induced subacute dyskinesia; Z90.710 Acquired absence of both cervix and uterus; Z87.891 Personal history of nicotine dependence; Z79.899 Other long term (current) drug therapy
CPT/HCPCS: 36415; 71046; 74176; 80053; 81001; 81025; 83605; 85025; 87086; 99284